=== PATIENT | female | born 1985 | race Caucasian/White ===

== ENCOUNTER 2016-09-13 13:18 | Emergency (ER) | payer OTHER ==
[~2016-09-13] VITALS: Ht 165.1 cm; Wt 84.0 kg
[2016-09-13 13:25] VITALS: Ht 165.1 cm; Wt 84.0 kg
[2016-09-13] MEDS ORDERED: KETOROLAC TROMETHAMINE 30 MG/ML VIAL IV STA (13:54)
[2016-09-13] MEDS ORDERED: ONDANSETRON INJ 2 MG/ML 2 ML VIAL IV STA (13:54)
[2016-09-13] MEDS ORDERED: SODIUM CHLORIDE 0.9% 1000ML 1,000 ML IV ONE (14:00)
[2016-09-13] MEDS ORDERED: ACETAMINOPHEN IV 100 ML IV ONE (14:00)
[2016-09-13] MEDS ORDERED: HYDR200T5 PO (14:09)
[2016-09-13] MEDS ORDERED: IBUP-1050 PO (14:09)
[2016-09-13] MEDS ORDERED: NRN600 PO (14:09)
[2016-09-13] MEDS ORDERED: EPP3/2 IM (14:09)
[2016-09-13] MEDS ORDERED: CYCL10TA6 PO (14:09)
[2016-09-13 15:04] LABS: PREG INTERNAL NEGATIVE QC NEG CLEAR BACKGROUND; PREG INTERNAL POSITIVE QC POS CONTROL LINE
[2016-09-13 15:12] LABS: MANUAL MICROSCOPIC REQUIRED? YES; URINE APPEARANCE CLOUDY (CLEAR); URINE COLOR AMBER; URINE NITRITE POS (NEG); URINE PH 5.5 (4.5-7.5); URINE SPECIFIC GRAVITY >= 1.030 (1.000-1.030); UROBILINOGEN NEG (NEG)
[2016-09-13 15:17] LABS: REVIEW REQ? NO
[2016-09-13 15:18] LABS: URINE BILIRUBIN NEG (NEG)
[2016-09-13 15:25] LABS: URINE BACTERIA 1+ (NEG); ZZUR CULT IF INDIC CLEAN CATCH YES
[2016-09-13 15:33] LABS: ALB/GLOB RATIO 1.2 (0.9-2); ALKALINE PHOSPHATASE 70 U/L (45-117); ALT/SGPT 17 U/L (12-78); AMYLASE 34 U/L (25-115); BLOOD UREA NITROGEN 10 mg/dl (7-18); BUN/CREATININE RATIO 13.9 (10-20); CALCIUM 9.1 mg/dl (8.5-10.1); CARBON DIOXIDE 26 mmol/L (21-32); CHLORIDE 108 mmol/L (98-107); CREATININE 0.75 mg/dl (0.60-1.20); GLUCOSE 81 mg/dl (70-99); SODIUM 141 mmol/L (136-145)
[2016-09-13 16:03] LABS: BASO % 0.2 %; BASO ABS # 0.04 K/uL (0-0.2); COMPLETE YES; EOS % 0.6 %; HEMATOCRIT 44.2 % (37-47); IG% 0.3 %; LYMPH % 6.3 %; LYMPH ABS # 1.08 K/uL (1.2-3.4); MEAN CELL VOLUME 87.9 fL (80-100); MEAN CORPUSCULAR HEMOGLOBIN 30.8 pg (25-34); MEAN CORPUSCULAR HGB CONC 35.1 g/dl (32-36); MEAN PLATELET VOLUME 9.6 fL (7.4-10.4); MONO % 1.6 %; PLATELET COUNT 289 K/uL (130-400); RED BLOOD COUNT 5.03 M/uL (4.2-5.4); WHITE BLOOD COUNT 17.22 K/uL (4.8-10.8)
[2016-09-13 16:05] LABS: BENZODIAZEPINE, URINE NEG (NEG); COCAINE,URINE NEG (NEG); PHENCYCLIDINE, URINE NEG (NEG)
--- NOTE | 2016-09-13 16:55 | DIAGNOSTIC IMAGING REPORT ---
ABDOMEN AND PELVIS CT WITHOUT CONTRAST CT DOSE: 504.01 mGy.cm HISTORY: Pain. Nausea. Generalized abd pain TECHNIQUE: Multiaxial CT images of the abdomen and pelvis were performed without contrast. COMPARISON STUDY: None. FINDINGS: Lung bases are clear. Liver spleen and pancreas appear uniform. Pancreas is suboptimally seen due to the absence of fat in that in the peripancreatic region. Kidneys negative for calcification or hydronephrosis. There is suggestion of mild wall edema of the colon. This may be technical air is a 5 x 4 cm right ovarian cyst. There is a 2 cm left ovarian cyst. There is no significant free fluid within the pelvic cul-de-sac. Bowel pattern is nonobstructive. IMPRESSION: 1. Findings suggestive of a mild nonspecific generalized colitis. 2. No evidence for abscess collection or obstruction. 3. Bilateral ovarian cysts. Electronically signed by: Matias Rendon M.D. 09/13/2016 4:54 PM Dictated Date/Time: 09/13/2016 4:51 PM
[2016-09-13 18:11] LABS: INR 0.9 (0.9-1.1); PARTIAL THROMBOPLASTIN RATIO 0.9
[2016-09-13] MEDS ORDERED: METRONIDAZOLE 250 MG TAB PO STA (18:49)
[2016-09-13] MEDS ORDERED: METR-162 PO (18:53)
[2016-09-13] MEDS ORDERED: HYDR-5688 PO (18:53)
[2016-09-13] MEDS ORDERED: CIPR-255 PO (18:53)
[2016-09-13] MEDS ORDERED: ONDA4TAB10 SL (18:53)
[2016-09-13] MEDS ORDERED: ONDANSETRON HOME PACK 4MG OD TAB PO ONE (19:00)
[2016-09-13] MEDS ORDERED: NORCO 5/325MG HOME PACK PO ONE (19:00)
[2016-09-13] MEDS ORDERED: CIPROFLOXACIN 500MG HOME PACK PO ONE (19:00)
--- NOTE | 2016-09-13 19:52 | EMERGENCY ROOM VISIT NOTE ---
History First contact with patient: 13:39 Chief Complaint: GI ASSESSMENT Stated Complaint: PAIN, LIGHTHEADED, VOMITING HX: PANCREATITIS Nursing Triage Summary: having abdominal pain. "I had to leave work because I got sick and started to vomit." hx of right ovarian cyst and pancreatitis. being "worked up for lupus" History of Present Illness The patient is a 31 year old female who presents to the Emergency Room with complaints of mid abdominal pain worsening over the past one day. The patient states that she feels a bandlike sensation from the left to the right side of her abdomen. She states that she has had similar symptoms intermittently over the past year, and previously has been diagnosed with a right ovarian cyst and pancreatitis. 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 She was at work today when her symptoms began. She has had nausea and vomiting 2. She has not had diarrhea or dysuria. She feels lightheaded after vomiting. The patient denies chance of . She does not have recent travel history or change in food/water supply. She has not been on antibiotics recently. She is being evaluated by her primary care physician for possible lupus. She has not seen GI yet despite having abdominal symptoms for roughly the past year. She rates her current discomfort a 9/10. She has not taken anything [id number] for her discomfort. Review of Systems More than 10 systems were reviewed and otherwise negative with the exception of history of present illness. Past Medical/Surgical History Past history of possible lupus Family History Family history of DVT Social History Smoking Status: Current Every Day Smoker Housing Status: lives with family Occupation Status: employed Current/Historical Medications Scheduled Ciprofloxacin Hcl (Cipro), 500 MG PO BID Cyclobenzaprine Hcl (Flexeril), 1 TAB PO HS Epinephrine (Epipen), 0.3 MG IM UD Gabapentin (Gabapentin), 600 MG PO HS Hydroxychloroquine Sulfate (Plaquenil), 200 MG PO BID Metronidazole (Flagyl), 500 MG PO TID Ondasetron Odt (Zofran Odt), 4 MG SL Q6H Scheduled PRN Hydrocodone/Acetaminophen 5MG/325MG (Lacon 5MG/325MG), 1 TABLET PO Q6 PRN for Pain Ibuprofen (Advil), 200-600 MG PO Q4H PRN for Pain Allergies Coded Allergies: Prednisone (Verified Allergy, Unknown, hives, 09/13/16) Physical Exam Vital Signs Date Time Temp Pulse Resp B/P Pulse Ox O2 Delivery O2 Flow Rate FiO2 09/13/16 17:35 95 18 117/69 98 Room Air 09/13/16 16:32 95 18 121/67 98 Room Air 09/13/16 15:21 79 18 125/79 98 Room Air 09/13/16 13:25 36.8 92 18 134/90 98 Room Air Physical Exam VITALS: Vitals are noted on the nurse's note and reviewed by myself. Vital signs stable. GENERAL: Well-developed, well-nourished, white female who appears in mild discomfort secondary to her stated complaint. HEAD: Normocephalic atraumatic. HEART: Regular rate and rhythm without murmurs gallops or rubs. LUNGS: Clear to auscultation bilaterally without wheezes, rales or rhonchi. No retractions or accessory muscle use. ABDOMEN: Positive normal bowel sounds x 4. Soft with generalized tenderness throughout. No distinct point tenderness. No rebound or guarding. No CVA tenderness. MUSCULOSKELETAL: No muscle atrophy, erythema, or edema noted. Full range of motion without joint tenderness in all extremities. NEURO: Patient was alert and oriented to person place and time. CN II through XII grossly intact. Medical Decision & Procedures ER Provider Diagnostic Interpretation: ABDOMEN AND PELVIS CT WITHOUT CONTRAST CT DOSE: 504.01 mGy.cm HISTORY: Pain. Nausea. Generalized abd pain TECHNIQUE: Multiaxial CT images of the abdomen and pelvis were performed without contrast. COMPARISON STUDY: None. FINDINGS: Lung bases are clear. Liver spleen and pancreas appear uniform. Pancreas is suboptimally seen due to the absence of fat in that in the peripancreatic region. Kidneys negative for calcification or hydronephrosis. There is suggestion of mild wall edema of the colon. This may be technical air is a 5 x 4 cm right ovarian cyst. There is a 2 cm left ovarian cyst. There is no significant free fluid within the pelvic cul-de-sac. Bowel pattern is nonobstructive. IMPRESSION: 1. Findings suggestive of a mild nonspecific generalized colitis. 2. No evidence for abscess collection or obstruction. 3. Bilateral ovarian cysts. Laboratory Results 09/13/16 14:55 Red Blood Count 5.03, Mean Corpuscular Volume 87.9, Mean Corpuscular Hemoglobin 30.8, Mean Corpuscular Hemoglobin Concent 35.1, Mean Platelet Volume 9.6, Neutrophils (%) (Auto) 91.0, Lymphocytes (%) (Auto) 6.3, Monocytes (%) (Auto) 1.6, Eosinophils (%) (Auto) 0.6, Basophils (%) (Auto) 0.2, Neutrophils # (Auto) 15.67, Lymphocytes # (Auto) 1.08, Monocytes # (Auto) 0.28, Eosinophils # (Auto) 0.10, Basophils # (Auto) 0.04 09/13/16 14:55 Test 09/13/16 14:46 09/13/16 14:55 09/13/16 17:46 Urine Color PRASHANT Urine Appearance CLOUDY (CLEAR) Urine pH 5.5 (4.5-7.5) Urine Specific [place] >= 1.030 (1.000-1.030) Urine Protein 2+ (NEG) Urine Glucose (UA) TRACE (NEG) Urine Ketones TRACE (NEG) Urine Occult Blood NEG (NEG) Urine Nitrite POS (NEG) Urine Bilirubin NEG (NEG) Urine Urobilinogen NEG (NEG) Urine Leukocyte Esterase NEG (NEG) Urine RBC 5-10 /hpf (0-4) Urine WBC 1-5 /hpf (0-5) Urine Epithelial Cells >30 /lpf (0-5) Urine Calcium Oxalate Crystals PRESENT (NONE PRSENT) Urine Bacteria 1+ (NEG) Urine Test NEG (NEG) Urine Opiates Screen NEG (NEG) Urine Methadone, Qualitative NEG (NEG) Urine Barbiturates NEG (NEG) Urine Phencyclidine (PCP) Level NEG (NEG) Ur Amphetamine/Methamphetamine NEG (NEG) MDMA (Ecstasy) Screen NEG (NEG) Urine Benzodiazepines Screen NEG (NEG) Urine Cocaine Metabolite NEG (NEG) Urine Marijuana (THC) NEG (NEG) White Blood Count 17.22 K/uL (4.8-10.8) Red Blood Count 5.03 M/uL (4.2-5.4) Hemoglobin 15.5 g/dL (12.0-16.0) Hematocrit 44.2 % (37-47) Mean Corpuscular Volume 87.9 fL (80-100) Mean Corpuscular Hemoglobin 30.8 pg (25-34) Mean Corpuscular Hemoglobin Concent 35.1 g/dl (32-36) Platelet Count 289 K/uL (130-400) Mean Platelet Volume 9.6 fL (7.4-10.4) Neutrophils (%) (Auto) 91.0 % Lymphocytes (%) (Auto) 6.3 % Monocytes (%) (Auto) 1.6 % Eosinophils (%) (Auto) 0.6 % Basophils (%) (Auto) 0.2 % Neutrophils # (Auto) 15.67 K/uL (1.4-6.5) Lymphocytes # (Auto) 1.08 K/uL (1.2-3.4) Monocytes # (Auto) 0.28 K/uL (0.11-0.59) Eosinophils # (Auto) 0.10 K/uL (0-0.5) Basophils # (Auto) 0.04 K/uL (0-0.2) RDW Standard Deviation 39.6 fL (36.4-46.3) RDW Coefficient of Variation 12.4 % (11.5-14.5) Immature Granulocyte % (Auto) 0.3 % Immature Granulocyte # (Auto) 0.05 K/uL (0.00-0.02) Anion Gap 7.0 mmol/L (3-11) Est Creatinine Clear Calc Drug Dose 118.5 ml/min Estimated GFR () 124.8 Estimated GFR (Non- 107.7 BUN/Creatinine Ratio 13.9 (10-20) Calcium Level 9.1 mg/dl (8.5-10.1) Total Bilirubin 1.0 mg/dl (0.2-1) Aspartate Amino Transf (AST/SGOT) U/L (15-37) Alanine Aminotransferase (ALT/SGPT) 17 U/L (12-78) Alkaline Phosphatase 70 U/L (45-117) Total Protein 7.1 gm/dl (6.4-8.2) Albumin 3.8 gm/dl (3.4-5.0) Globulin 3.3 gm/dl (2.5-4.0) Albumin/Globulin Ratio 1.2 (0.9-2) Amylase Level 34 U/L (25-115) Lipase 176 U/L (73-393) Prothrombin Time 10.0 SECONDS (9.0-12.0) Prothromb Time International Ratio 0.9 (0.9-1.1) Activated Partial Thromboplast Time 22.7 SECONDS (21.0-31.0) Partial Thromboplastin Ratio 0.9 Lactic Acid Level 0.9 mmol/L (0.4-2.0) Medications Administered Medications (Trade) Dose Ordered Sig/Mikhail Route Start Time Stop Time Status Last Admin Dose Admin Sodium Chloride (Nss 1000ml) 1,000 ml @ 999 mls/hr Q1H1M ONCE IV 09/13/16 14:00 09/13/16 15:00 DC 09/13/16 15:11 999 MLS/HR Ketorolac Tromethamine (Toradol Inj) 30 mg NOW STAT IV 09/13/16 13:54 09/13/16 13:59 DC 09/13/16 15:12 30 MG Ondansetron HCl 4 mg 4 mg NOW STAT IV 09/13/16 13:54 09/13/16 13:59 DC 09/13/16 15:12 4 MG Acetaminophen (Ofirmev Iv) 100 ml @ 400 mls/hr NOW ONCE IV 09/13/16 14:00 09/13/16 14:14 DC 09/13/16 15:12 400 MLS/HR ED Course Physical exam and history were performed. Nursing notes and EMR were reviewed. Patient appears to have generalized abdominal pain worsening over the past several hours. On exam she is tender throughout the abdomen without distinct point tenderness. She does have a reported history of pancreatitis in the past. IV access was established and labs were obtained. The patient was hydrated and medicated as above. I did offer the patient narcotic medication, but she declined. The patient's blood work shows an elevated white blood cell count of greater than 17,000. She does not have a significant anemia, bandemia, or gross electrolyte imbalance. Lipase and amylase are normal. Her urine is suggestive of infection with culture pending. Because of the elevated white blood cell count and abdominal pain, I did then elect to perform a CT scan. CT scan was read as above and correlates with a mild colitis. Clinically this would correlate with the patient's discomfort. Out of concern for possible ischemic colitis I then ordered a lactic acid, which was also negative. I discussed the case with my attending physician, Dr. García. The patient likely has a colitis and urinary tract infection. She appears stable, and based on her symptoms will be provided a course of Cipro, Flagyl, Vicodin, and Zofran. She overall appears appropriate for discharge home. The patient will need close outpatient follow-up, and I did give her a note for a few days off work. The patient may need outpatient scoping, and I will give her information to follow with gastroenterology. The patient was happy with this plan and voiced understanding. She was invited back to the ER with any new, worsening, or concerning symptoms. The patient rated her discomfort a 2/10 at the time of departure. The chart was completed utilizing [employer] Speech Voice Recognition Software. Grammatical errors, random word insertions, pronoun errors, and incomplete sentences are an occasional consequence of this system due to software limitations, ambient noise, and hardware issues. Any formal questions or concerns about the content, text, or information contained within the body of this dictation should be directly addressed to the provider for clarification. . Medical Decision Differential diagnosis: Etiologies such as appendicitis, diverticulitis, PUD, biliary pathology, UTI, pancreatitis, obstruction, mesenteric ischemia, aortic pathology, infections, inflammatory bowel disease, renal colic, as well as others were entertained. Impression Primary Impression: Colitis Additional Impressions: UTI (urinary tract infection) Abdominal pain Departure Information Dispostion Home / Self-Care Condition GOOD Prescriptions Ondasetron Odt (ZOFRAN ODT) 4 Mg Tab 4 MG SL Q6H for Nausea, #12 TAB Prov: Toni Red PA-C 09/13/16 Hydrocodone/Acetaminophen 5MG/325MG (Lacon 5MG/325MG) Tab 1 TABLET PO Q6 Y for Pain, #12 TAB For Initial Treatment Prov: Toni Red PA-C 09/13/16 Metronidazole (FLAGYL) 500 Mg Tab 500 MG PO TID for 9 Days, #27 TAB Prov: Toni Red PA-C 09/13/16 Ciprofloxacin Hcl (CIPRO) 500 Mg Tab 500 MG PO BID for 9 Days, #18 TAB Prov: Toni Red PA-C 09/13/16 Referrals Kyree Ortiz M.D. Forms HOME CARE DOCUMENTATION FORM, Work Instructions, Additional Instructions: Patient was seen and evaluated today in the emergency department fo medical care. Return to work on 09/17/2016 or sooner if feeling better. Please excuse. IMPORTANT VISIT INFORMATION Patient Instructions My [facility] Additional Instructions You were seen and evaluated today on an emergency basis only. This is not a substitute for, or an effort to provide, complete comprehensive medical care. It is not possible to recognize and treat all injuries or illnesses in a single emergency department visit. For this reason it is recommended that you followup with your primary care physician this week for ongoing care and evaluation. Call Thursday to make your appointment. It is also recommended that you follow with gastroenterology. We have provided the contact information for Dr. Ortiz's office. For baseline pain relief you may alternate ibuprofen and acetaminophen every 4 hours for pain control. Take 600 mg ibuprofen (Advil) and then 4 hours later take 1000 mg acetaminophen (Tylenol). Do not take more than 3000 mg acetaminophen in a single day. Lacon (hydrocodone/acetaminophen) 5/325 mg every 6 hours as needed for worsening breakthrough pain. Do not drink or drive on [place]. This medication will likely make you tired. Do not take Lacon and Tylenol at the same time as both contain acetaminophen. Lacon may cause constipation. You may wish to take an [id number] stool softener like Colace if this occurs. Ciprofloxacin(Cipro) 500mg: Take one pill twice daily for 10 total days for your infection. All antibiotics can cause diarrhea. If this occurs and you feel worse or it does not resolve in 1-2 days follow up with your doctor or return to the Emergency Department as this could be signs of serious underlying problems. If you experience any pain in your tendons or any tendon injury return to the ER for re-evaluation. Any medication can cause an allergic reaction, stop the pills immediately and return to the ER for rash, hives, breathing difficulties, or swelling. Metronidazole(Flagyl) 500mg: Take one pill three times daily for a total days for your infection. DO NOT drink alcohol or take alcohol containing products with this medication. Any medication can cause an allergic reaction, stop the pills immediately and return to the ER for rash, hives, breathing difficulties, or swelling. Zofran 1 tablet every 6 hrs as needed for nausea. Drink plenty of fluids and remain well hydrated. You are welcome to return to the emergency department anytime with new, worsening, or concerning symptoms. Work Instructions Additional Work Instructions: Patient was seen and evaluated today in the emergency department for medical care. Return to work on 09/17/2016 or sooner if feeling better. Please excuse. Problem Qualifiers
[2016-09-13 19:57] VITALS: BP 122/71; PULSE 91; TEMP 36.8; O2SAT 98
== END 2016-09-13 19:57 | disposition home or self-care (01) ==
LOC: C.EDB 13:20
DX: K52.9 Noninfective gastroenteritis and colitis, unspecified (principal); N39.0 Urinary tract infection, site not specified; F17.200 Nicotine dependence, unspecified, uncomplicated

== ENCOUNTER 2016-09-24 15:38 | Emergency (ER) | payer OTHER ==
[~2016-09-24] VITALS: Ht 167.6 cm; Wt 84.0 kg
[~2016-09-24 15:38] MED LIST: CIPR-255 PO; CYCL10TA6 PO; EPP3/2 IM; HYDR-5688 PO; HYDR200T5 PO; IBUP-1050 PO; NRN600 PO; ONDA4TAB10 SL
[2016-09-24 15:49] VITALS: TEMP 36.3; Ht 167.6 cm; Wt 84.0 kg
[2016-09-24] MEDS ORDERED: SODIUM CHLORIDE 0.9% 1000ML 1,000 ML IV SCH (16:33)
--- NOTE | 2016-09-24 16:47 | DIAGNOSTIC IMAGING REPORT ---
ADDENDUM Addendum to CT brain: No evidence for radiopaque or metallic foreign body within the skull or brain based on this exam Electronically signed by: Matias Rendon M.D. 09/24/2016 5:47 PM Dictated Date/Time: 09/24/2016 5:46 PM ORIGINAL REPORT HEAD CT NONCONTRAST CT DOSE: 638.56 mGycm HISTORY: Mental status change. Visual change. Stroke TECHNIQUE: Multiaxial CT images of the head were performed without the use of intravenous contrast. Comparison: None. Findings: The paranasal sinuses and mastoid air cells are clear. The calvarium and skull base are intact. The ventricles and sulci are within normal limits. There is no mass, hematoma, midline shift, or acute infarct. Impression: No acute intracranial abnormality. Electronically signed by: Matias Rendon M.D. 09/24/2016 4:45 PM Dictated Date/Time: 09/24/2016 4:45 PM
[2016-09-24 16:50] VITALS: O2SAT 99
[2016-09-24 17:02] LABS: BASO % 0.5 %; BASO ABS # 0.05 K/uL (0-0.2); COMPLETE YES; EOS % 1.6 %; HEMATOCRIT 42.8 % (37-47); IG% 0.1 %; LYMPH ABS # 3.14 K/uL (1.2-3.4); MEAN CELL VOLUME 87.7 fL (80-100); MEAN CORPUSCULAR HEMOGLOBIN 30.1 pg (25-34); MEAN CORPUSCULAR HGB CONC 34.3 g/dl (32-36); MEAN PLATELET VOLUME 9.2 fL (7.4-10.4); MONO % 6.6 %; NEUT % 60.2 %; PLATELET COUNT 323 K/uL (130-400); RED BLOOD COUNT 4.88 M/uL (4.2-5.4); WHITE BLOOD COUNT 10.12 K/uL (4.8-10.8)
--- NOTE | 2016-09-24 17:04 | DIAGNOSTIC IMAGING REPORT ---
CHEST ONE VIEW PORTABLE CLINICAL HISTORY: Stroke dyspnea COMPARISON STUDY: No previous studies for comparison. FINDINGS: The bones soft tissues and hemidiaphragms are normal. The cardiomediastinal silhouette is normal. The lungs are clear. The pulmonary vasculature is normal. IMPRESSION: Negative chest. Electronically signed by: Matias Rendon M.D. 09/24/2016 5:02 PM Dictated Date/Time: 09/24/2016 5:02 PM
[2016-09-24 17:11] LABS: PARTIAL THROMBOPLASTIN RATIO 1.1; PROTHROMBIN TIME (PATIENT) 10.2 SECONDS (9.0-12.0)
[2016-09-24 17:19] LABS: BLOOD UREA NITROGEN 8 mg/dl (7-18); BUN/CREATININE RATIO 10.7 (10-20); CALCIUM 9.4 mg/dl (8.5-10.1); CARBON DIOXIDE 28 mmol/L (21-32); CHLORIDE 107 mmol/L (98-107); CREATININE 0.76 mg/dl (0.60-1.20); GLUCOSE 96 mg/dl (70-99); SODIUM 140 mmol/L (136-145)
[2016-09-24 17:24] LABS: CKMB/CK RATIO 1.8 (0-3.0)
[2016-09-24 18:58] LABS: BENZODIAZEPINE, URINE NEG (NEG); COCAINE,URINE NEG (NEG); PHENCYCLIDINE, URINE NEG (NEG)
--- NOTE | 2016-09-24 20:13 | DIAGNOSTIC IMAGING REPORT ---
Brain MRA HISTORY: Mental status change headache/ weakness TECHNIQUE: 3-D [id number] MRA of the brain was performed without contrast. COMPARISON STUDY: None. FINDINGS: Visualized intracranial internal carotid arteries, distal vertebral arteries, and basilar artery are widely patent. There is no significant stenosis, occlusion, or aneurysm seen within the bilateral ACAs, MCAs, or drapery operator. IMPRESSION: No significant stenosis, occlusion, or aneurysm within the port lions of [place]. Normal study Electronically signed by: Matias Rendon M.D. 09/24/2016 8:11 PM Dictated Date/Time: 09/24/2016 8:08 PM
[2016-09-24] MEDS ORDERED: ACETAMINOPHEN 500 MG TAB PO STA (21:09)
--- NOTE | 2016-09-24 21:15 | DIAGNOSTIC IMAGING REPORT ---
MRI OF THE BRAIN WITHOUT AND WITH IV CONTRAST CLINICAL HISTORY: headache, weakens mental status change COMPARISON STUDY: No previous studies for comparison. TECHNIQUE: Utilizing a 1.5 Melva magnet and dedicated coil, multiplanar, multiecho imaging of the brain was performed pre and postcontrast administration. IV administration of 8 mL of Gadavist contrast was uneventful. FINDINGS: Normal signal characteristics of the cerebellar as well as cerebral hemispheres. Ventricular system is midline. Internal auditory canals are symmetric. Sella and parasellar regions are unremarkable. There is no abnormal postcontrast enhancement. Diffusion-weighted images show no evidence for an acute ischemic process. IMPRESSION: Normal study. Electronically signed by: Matias Rendon M.D. 09/24/2016 9:13 PM Dictated Date/Time: 09/24/2016 9:09 PM
--- NOTE | 2016-09-24 21:23 | DIAGNOSTIC IMAGING REPORT ---
NECK MRA HISTORY: Mental status change headache, weakness TECHNIQUE: [id number] and gadolinium-enhanced MRA of the neck was performed both before and after the intravenous administration of contrast. All measurements were calculated based on NASCET criteria. COMPARISON STUDY: None. FINDINGS: The aortic arch and proximal great vessels are widely patent. There is no significant stenosis, occlusion, or dissection identified within the bilateral common carotid, internal carotid, or vertebral arteries. IMPRESSION: No significant stenosis, occlusion, or dissection identified within the carotid or vertebral arteries. Electronically signed by: Matias Rendon M.D. 09/24/2016 9:22 PM Dictated Date/Time: 09/24/2016 9:19 PM
--- NOTE | 2016-09-24 21:33 | EMERGENCY ROOM VISIT NOTE ---
ED Visit Note First contact with patient: 16:13 Staff note: I have seen and examined this patient. I have discussed this case with my PA and generally agree with the ED note and findings. Patient was initially seen by my PA. She reports to me that the patient had left-sided weakness, was aphasic and was having a headache. Stroke alert was immediately called. On my exam she is very lethargic and nonfocal in the upper extremities but not moving the lower extremities. There was no focal deficit. She's was not a TPA candidate on my evaluation as this does not appear to be a stroke but rather metabolic vs seizure vs psych. CT head showed no acute bleed. I discussed the findings with stroke neurology at [facility]. She was evaluated by them and recommended additional MRIs. Please refer to my PAs note for further management and care.
--- NOTE | 2016-09-24 22:39 | EMERGENCY ROOM VISIT NOTE ---
History First contact with patient: 16:13 Chief Complaint: HEADACHE Stated Complaint: PAIN LEFT ARM, BLURRED VISION, HEADACHE History of Present Illness The patient is a 31 year old female who presents to the Emergency Room with complaints of headache, blurred vision and left arm tingling. The patient states that for the past few days she has had a right-sided frontal headache with intermittent blurry/double vision. The patient denies any dizziness, chest pain or shortness of breath. The patient states that today she was coming home from visiting a friend and while she was driving she started getting a pounding headache and tingling in her left arm. When she got home her was there and called a friend who is in the medical field and they instructed him to bring her to the emergency room. They live in [place]. The states that the patient was still complaining of the arm numbness and stated that she just didn't feel good. She had an episode of diarrhea and she also stated that she had eaten pancakes when she was out with a friend and vomited. On the way to the emergency room the patient started feeling very weak. Upon arrival to the ER she was able to get out of the car but her stated that she was stumbling and he had to help her into the lobby area. By the time she reached triage her speech was compromise. He states that he can barely hear what she was saying and her words were mumbled. He states this has never happened to her in the past. 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 Her last seizure was over one year ago. She has never been on any seizure medication. He states that when he met her 5 years ago she had told him that she had all 3 types of seizures. He states when he saw her have a seizure over one year ago it only lasted for approximately 1 minute and it was basically that she lost muscle control and fell to the ground and her eyes rolled back. The patient currently is not on any narcotic pain medication. She was given pain medication when she was in the emergency room over a week ago for colitis. He states she ran out of the medication several days ago. He also states that she is currently being worked up by [facility] for possible lupus. She is currently taking Actonel, gabapentin and Flexeril. He states she does smoke cigarettes but very rarely drinks alcohol. The patient's ability to answer questions diminished the longer I was asking her questions. Review of Systems 10 system review was performed and was negative unless stated otherwise history of present illness. Past Medical/Surgical History Head trauma, cholecystectomy, recent colitis, possible lupus Social History Smoking Status: Current Every Day Smoker Alcohol Use: occasionally Marital Status: Housing Status: lives with family Occupation Status: employed Current/Historical Medications Scheduled Ciprofloxacin Hcl (Cipro), 500 MG PO BID Cyclobenzaprine Hcl (Flexeril), 1 TAB PO HS Epinephrine (Epipen), 0.3 MG IM UD Gabapentin (Gabapentin), 600 MG PO HS Hydroxychloroquine Sulfate (Plaquenil), 200 MG PO BID Ondasetron Odt (Zofran Odt), 4 MG SL Q6H Scheduled PRN Hydrocodone/Acetaminophen 5MG/325MG ([place] 5MG/325MG), 1 TABLET PO Q6 PRN for Pain Ibuprofen (Advil), 200-600 MG PO Q4H PRN for Pain Allergies Coded Allergies: Prednisone (Verified Allergy, Unknown, hives, 09/13/16) Physical Exam Vital Signs Date Time Temp Pulse Resp B/P Pulse Ox O2 Delivery O2 Flow Rate FiO2 09/24/16 21:11 80 09/24/16 21:03 86 16 120/82 99 09/24/16 18:34 83 12 132/87 100 Nasal Cannula 2.0 09/24/16 18:03 81 16 135/90 100 Nasal Cannula 2.0 09/24/16 17:31 86 16 140/98 100 Nasal Cannula 2.0 09/24/16 17:11 12 97 Nasal Cannula 2.0 09/24/16 17:11 87 12 134/94 88 Room Air 09/24/16 16:55 85 12 127/82 97 Room Air 09/24/16 16:50 99 Room Air 09/24/16 16:13 83 09/24/16 15:49 36.3 87 16 121/94 100 Physical Exam GENERAL: 31-year-old white female appears very lethargic with her eyes closed. MENTAL Status: The patient initially was alert and was able to answer questions appropriately but then her alertness diminished. EYES: PERRLA. EOMs intact. EARS: Canals clear. TMs without fluid level noted. NECK: Supple, no lymphadenopathy noted. No carotid bruits noted. LUNGS: Clear auscultation without wheezes rales or rhonchi. CARDIAC: Regular rate and rhythm without murmur. Pulses is full and equal throughout. ABDOMEN: Positive bowel sounds all 4 quadrants. Soft, nontender to palpation without organomegaly or masses. NEURO: The patient was not responding well to commands. She was able to puff out her cheek and stick her tongue out but was unable to smile or raise her eyebrows. Muscle strength was diminished throughout. Her video intern strength was less on the left as compared to the right.. Medical Decision & Procedures ER Provider Diagnostic Interpretation: CHEST ONE VIEW PORTABLE CLINICAL HISTORY: Stroke dyspnea COMPARISON STUDY: No previous studies for comparison. FINDINGS: The bones soft tissues and hemidiaphragms are normal. The cardiomediastinal silhouette is normal. The lungs are clear. The pulmonary vasculature is normal. IMPRESSION: Negative chest. Electronically signed by: Matias Rendon M.D. Addendum to CT brain: No evidence for radiopaque or metallic foreign body within the skull or brain based on this exam Electronically signed by: Matias Rendon M.D. 09/24/2016 5:47 PM Dictated Date/Time: 09/24/2016 5:46 PM ORIGINAL REPORT HEAD CT NONCONTRAST CT DOSE: 638.56 mGycm HISTORY: Mental status change. Visual change. Stroke TECHNIQUE: Multiaxial CT images of the head were performed without the use of intravenous contrast. Comparison: None. Findings: The paranasal sinuses and mastoid air cells are clear. The calvarium and skull base are intact. The ventricles and sulci are within normal limits. There is no mass, hematoma, midline shift, or acute infarct. Impression: No acute intracranial abnormality. Electronically signed by: Matias Rendon M.D. 09/24/2016 4:45 PM Dictated Date/Time: 09/24/2016 4:45 PM 09/24/2016 5:02 PM Dictated Date/Time: 09/24/2016 5:02 PM MRI OF THE BRAIN WITHOUT AND WITH IV CONTRAST CLINICAL HISTORY: headache, weakens mental status change COMPARISON STUDY: No previous studies for comparison. TECHNIQUE: Utilizing a 1.5 Melva magnet and dedicated coil, multiplanar, multiecho imaging of the brain was performed pre and postcontrast administration. IV administration of 8 mL of Gadavist contrast was uneventful. FINDINGS: Normal signal characteristics of the cerebellar as well as cerebral hemispheres. Ventricular system is midline. Internal auditory canals are symmetric. Sella and parasellar regions are unremarkable. There is no abnormal postcontrast enhancement. Diffusion-weighted images show no evidence for an acute ischemic process. IMPRESSION: Normal study. Electronically signed by: Matias Rendon M.D. Brain MRA HISTORY: Mental status change headache/ weakness TECHNIQUE: 3-D [id number] MRA of the brain was performed without contrast. COMPARISON STUDY: None. FINDINGS: Visualized intracranial internal carotid arteries, distal vertebral arteries, and basilar artery are widely patent. There is no significant stenosis, occlusion, or aneurysm seen within the bilateral ACAs, MCAs, or finisher hand. IMPRESSION: No significant stenosis, occlusion, or aneurysm within the [place]. Normal study Electronically signed by: Matias Rendon M.D. NECK MRA HISTORY: Mental status change headache, weakness TECHNIQUE: [id number] and gadolinium-enhanced MRA of the neck was performed both before and after the intravenous administration of contrast. All measurements were calculated based on NASCET criteria. COMPARISON STUDY: None. FINDINGS: The aortic arch and proximal great vessels are widely patent. There is no significant stenosis, occlusion, or dissection identified within the bilateral common carotid, internal carotid, or vertebral arteries. IMPRESSION: No significant stenosis, occlusion, or dissection identified within the carotid or vertebral arteries. Electronically signed by: Matias Rendon M.D. 09/24/2016 9:22 PM Laboratory Results 09/24/16 16:47 Red Blood Count 4.88, Mean Corpuscular Volume 87.7, Mean Corpuscular Hemoglobin 30.1, Mean Corpuscular Hemoglobin Concent 34.3, Mean Platelet Volume 9.2, Neutrophils (%) (Auto) 60.2, Lymphocytes (%) (Auto) 31.0, Monocytes (%) (Auto) 6.6, Eosinophils (%) (Auto) 1.6, Basophils (%) (Auto) 0.5, Neutrophils # (Auto) 6.09, Lymphocytes # (Auto) 3.14, Monocytes # (Auto) 0.67, Eosinophils # (Auto) 0.16, Basophils # (Auto) 0.05 09/24/16 16:47 Test 09/24/16 16:47 09/24/16 16:50 09/24/16 16:51 09/24/16 17:50 White Blood Count 10.12 K/uL (4.8-10.8) Red Blood Count 4.88 M/uL (4.2-5.4) Hemoglobin 14.7 g/dL (12.0-16.0) Hematocrit 42.8 % (37-47) Mean Corpuscular Volume 87.7 fL (80-100) Mean Corpuscular Hemoglobin 30.1 pg (25-34) Mean Corpuscular Hemoglobin Concent 34.3 g/dl (32-36) Platelet Count 323 K/uL (130-400) Mean Platelet Volume 9.2 fL (7.4-10.4) Neutrophils (%) (Auto) 60.2 % Lymphocytes (%) (Auto) 31.0 % Monocytes (%) (Auto) 6.6 % Eosinophils (%) (Auto) 1.6 % Basophils (%) (Auto) 0.5 % Neutrophils # (Auto) 6.09 K/uL (1.4-6.5) Lymphocytes # (Auto) 3.14 K/uL (1.2-3.4) Monocytes # (Auto) 0.67 K/uL (0.11-0.59) Eosinophils # (Auto) 0.16 K/uL (0-0.5) Basophils # (Auto) 0.05 K/uL (0-0.2) RDW Standard Deviation 39.4 fL (36.4-46.3) RDW Coefficient of Variation 12.3 % (11.5-14.5) Immature Granulocyte % (Auto) 0.1 % Immature Granulocyte # (Auto) 0.01 K/uL (0.00-0.02) Prothrombin Time 10.2 SECONDS (9.0-12.0) Prothromb Time International Ratio 1.0 (0.9-1.1) Activated Partial Thromboplast Time 27.9 SECONDS (21.0-31.0) Partial Thromboplastin Ratio 1.1 Anion Gap 5.0 mmol/L (3-11) Est Creatinine Clear Calc Drug Dose 119.2 ml/min Estimated GFR () 122.9 Estimated GFR (Non- 106.0 BUN/Creatinine Ratio 10.7 (10-20) Calcium Level 9.4 mg/dl (8.5-10.1) Total Creatine Kinase 38 U/L (26-192) Creatine Kinase MB 0.7 ng/ml (0.5-3.6) Creatine Kinase MB Ratio 1.8 (0-3.0) Troponin I < 0.015 ng/ml (0-0.045) Bedside Glucose 72 mg/dl (70-90) Bedside Prothrombin Time INR 1.0 (0.9-1.1) Urine Opiates Screen NEG (NEG) Urine Methadone, Qualitative NEG (NEG) Urine Barbiturates NEG (NEG) Urine Phencyclidine (PCP) Level NEG (NEG) Ur Amphetamine/Methamphetamine NEG (NEG) MDMA (Ecstasy) Screen NEG (NEG) Urine Benzodiazepines Screen NEG (NEG) Urine Cocaine Metabolite NEG (NEG) Urine Marijuana (THC) NEG (NEG) Medications Administered Medications (Trade) Dose Ordered Sig/Mikhail Route Start Time Stop Time Status Last Admin Dose Admin Sodium Chloride (Nss 1000ml) 1,000 ml @ 50 mls/hr Q20H IV 09/24/16 16:33 10/24/16 16:32 09/24/16 16:59 50 MLS/HR Acetaminophen (Tylenol Tab) 1,000 mg NOW STAT PO 09/24/16 21:09 09/24/16 21:10 DC 09/24/16 21:30 1,000 MG ECG Indication: weakness Rhythm: normal sinus Findings: no acute ischemic change ED Course The patient was evaluated. I immediately discussed the case with Dr. García who independently evaluated the patient. A stroke alert was called. Stroke protocol was initiated. The patient was quickly taken to CT for imaging. Imaging was negative. Consult with [facility] for assessment was obtained. Please see their note. The neurologist did not feel that TPA was indicated . He recommended that an MRI of the brain as well as MRA of the head and neck were obtained as soon as possible. These were ordered. MRI clearance was obtained. Chest x-ray was ordered and interpreted by the radiologist as above without any acute findings. Labs were reviewed and were all unremarkable. CBC and differential, renal profile, troponin were all negative. EKG was ordered and interpreted without any acute findings. Urine tox screen was ordered and was negative. MRI of the brain, MRA of the head and neck was interpreted by the radiologist as above without any acute findings. I advised that the patient get admitted for further evaluation and observation over at least the next 24 hours. The patient refused to be admitted and therefore she signed out AGAINST MEDICAL ADVICE Medical Decision Differential diagnosis include MS, brain lesion, stroke, aneurysm, vascular thrombosis in the head or neck, psychiatric, I do not have any clear cut answers for the patient's symptoms therefore admission was recommended. The patient refused to be admitted therefore left AGAINST MEDICAL ADVICE Impression Primary Impression: Headache Additional Impressions: Weakness Altered mental status Left against medical advice Departure Information Dispostion Home / Self-Care Condition FAIR Referrals No Doctor, Assigned (PCP) Forms HOME CARE DOCUMENTATION FORM, IMPORTANT VISIT INFORMATION Patient Instructions My [facility] Additional Instructions We recommended that he be admitted to the hospital. Use left AGAINST MEDICAL ADVICE. Please follow-up with your PCP as soon as possible. Problem Qualifiers
[2016-09-24 22:50] VITALS: BP 122/80; PULSE 82; O2SAT 98
== END 2016-09-24 22:55 | disposition left against medical advice (07) ==
LOC: C.EDB 15:39
DX: R51 Headache (principal); R53.1 Weakness; R41.82 Altered mental status, unspecified; Z87.820 Personal history of traumatic brain injury; K52.9 Noninfective gastroenteritis and colitis, unspecified; R56.9 Unspecified convulsions; F17.210 Nicotine dependence, cigarettes, uncomplicated; Z79.899 Other long term (current) drug therapy

== ENCOUNTER 2019-11-19 22:21 | Inpatient (IN) ==
[2019-11-19] MEDS ORDERED: ACETAMINOPHEN 1,000 MG/100 ML VIAL IV STA (23:40)
[2019-11-19] MEDS ORDERED: SODIUM CHLORIDE 0.9% 1000ML 1,000 ML IV ONE (23:40)
[2019-11-19] MEDS ORDERED: ONDANSETRON INJ 2 MG/ML 2 ML VIAL IV STA (23:40)
[2019-11-19] MEDS ORDERED: ALBUT/IPRATROP 3MG/0.5MG NEB 3 ML VIAL NEB STA (23:47)
--- NOTE | 2019-11-19 23:47 | Emergency Department Note ---
History of Present Illness General Chief complaint: Illness Stated complaint: COUGH, FEVER, SOB Time Seen by Provider: 11/19/19 23:17 Source: patient Mode of arrival: ambulatory Limitations: no limitations History of Present Illness Provider complaint: worsening symptoms Onset (ago): day(s) 4 Location: chest and abdomen Radiation: non-radiation Severity: moderate Pain Consistency: + constant Maximum Pain Intensity: 8 Current Pain Intensity: 8 Quality: + constant Relieved By: + none Exacerbated By: + movement Associated symptoms: + cough, + loss of appetite and + shortness of breath Treatments prior to arrival: NSAID and other (MDI) This is a 34-year-old female who presents from home with known coronavirus. Patient was diagnosed on November 15 after having a positive sick contact at work. Patient works in a mental health facility. Patient states she has felt worse with each passing day, is using her inhaler at home more frequently. She did speak to her machinist set up that she has a history of lupus and was told to stop her immunosuppressant agent, however she still does take Plaquenil. Patient has not been using prednisone or other steroids. Patient states she is more short of breath and had worsening chest pain with exertion. Patient denies any lower extremity swelling. No change in bowel or bladder function. No new rash or sores. Patient does notice poor smell and taste. Pt seen during a time of high acuity and national emergency pandemic while wearing PPE. Home Medications Home Medications Medication Instructions Recorded Confirmed Type albuterol sulfate [Proventil HFA] 2 puff INHALATION QID PRN 07/19/19 11/19/19 History duloxetine 30 mg PO HS 07/19/19 11/19/19 History duloxetine 60 mg PO HS 07/19/19 11/19/19 History gabapentin 1,200 mg PO HS 07/19/19 11/19/19 History nifedipine 30 mg PO HS 07/19/19 11/19/19 History fluticasone fur. 100 mcg-umeclid 1 puffs INH DAILY 90 Days #60 ea 08/12/19 11/19/19 Rx 62.5 mcg-vilant 25 mcg inhalat.powder hydroxychloroquine [Plaquenil] 200 mg PO DIRECTED 11/19/19 11/19/19 History zinc sulfate [Orazinc] 220 mg PO BID #20 cap 05/24/20 Rx Allergies Allergy/AdvReac Type Severity Reaction Status Date / Time bee venom protein (honey bee) Allergy Severe Anaphylaxis Verified 11/19/19 23:35 prednisone Allergy Intermediate hives Verified 11/19/19 23:35 Past Med/Surg History Medical History (Updated 11/21/19 @ 07:35 by Eulalia Wiggins DO) Asthma (Chronic) Bronchitis (Inactive) Fibromyalgia (Chronic) Pneumonia SLE (systemic lupus erythematosus related syndrome) (Acute) Tobacco abuse (Chronic) Surgical History H/O total hysterectomy Family History Other No significant family history Social History Preferred Language: Latvian Communication Ability: Effective Refrigeration Service Inspector Required: No Beliefs That Will Affect Care: None marital status: Current Living Situation: Spouse Feels Safe at Home: Yes Smoking Status: Current every day smoker Tobacco Type: cigarettes ; Age Started Using Tobacco: 15 ; Cigarettes Per Day: 4 ; Hx Alcohol Use: Yes Alcohol type: hard liquor Hx Substance Use: No Review of Systems See HPI for pertinent positives & negatives. and A total of 10 systems reviewed and were otherwise negative Physical Exam Vital Signs Vital Signs - 24 hr 11/19/19 22:28 11/19/19 23:34 11/20/19 00:01 Temperature 36.7 C Temperature Source Oral Pulse Rate 91 H Pulse Rate [Right Radial] 77 Pulse Rate from SpO2 Sensor 81 Pulse Rhythm Regular Pulse Strength Normal Respiratory Rate 20 16 Respiratory Effort / Characteristics Non-Labored Spontaneous Non-Labored Spontaneous Respiratory Depth Normal Respiratory Pattern Regular Blood Pressure 144/99 H 127/85 Blood Pressure Mean 114 103 Blood Pressure Position Lying Pulse Oximetry 98 95 98 Oxygen Delivery Method Room Air Room Air Sepsis Recent Fever Within 48 Hours Yes Sepsis New/Unexplained Change in Mental Status No Sepsis Action Taken by Nursing No Action Required 11/20/19 00:10 11/20/19 00:20 11/20/19 00:24 Temperature Temperature Source Pulse Rate Pulse Rate [Right Radial] Pulse Rate from SpO2 Sensor 82 87 87 Pulse Rhythm Pulse Strength Respiratory Rate Respiratory Effort / Characteristics Respiratory Depth Respiratory Pattern Blood Pressure 132/82 Blood Pressure Mean 90 Blood Pressure Position Pulse Oximetry 92 95 95 Oxygen Delivery Method Sepsis Recent Fever Within 48 Hours Sepsis New/Unexplained Change in Mental Status Sepsis Action Taken by Nursing 11/20/19 00:30 11/20/19 01:00 Temperature Temperature Source Pulse Rate 80 82 Pulse Rate [Right Radial] Pulse Rate from SpO2 Sensor 77 82 Pulse Rhythm Pulse Strength Respiratory Rate 16 16 Respiratory Effort / Characteristics Respiratory Depth Respiratory Pattern Blood Pressure 118/78 134/90 Blood Pressure Mean 96 98 Blood Pressure Position Pulse Oximetry 96 95 Oxygen Delivery Method Sepsis Recent Fever Within 48 Hours Sepsis New/Unexplained Change in Mental Status Sepsis Action Taken by Nursing GENERAL: alert, ill appearing, well nourished, no distress, non-toxic EYE EXAM: normal conjunctiva, PERRL and EOM's grossly intact OROPHARYNX: no exudate, no erythema, lips, buccal mucosa, and tongue normal and mucous membranes are moist NECK: supple, no nuchal rigidity, no adenopathy, non-tender LUNGS: Clear to auscultation. Normal chest wall mechanics, no w/r/r, slightly coarse at the bases posteriorly HEART: no murmurs, S1 normal and S2 normal ABDOMEN: abdomen soft, non-tender, normo-active bowel sounds, no masses, no rebound or guarding. BACK: Back is symmetrical on inspection and there is no deformity, no midline tenderness, no CVA tenderness. SKIN: no rashes and no bruising UPPER EXTREMITIES: upper extremities are grossly normal. FROM, nml pulses b/l. LOWER EXTREMITIES: No pitting edema. FROM, nml pulses b/l. NEURO EXAM: Normal sensorium, cranial nerves II-XII grossly intact, normal speech, no gross weakness of arms, no gross weakness of legs. Gross sensation intact. Course Course 0202: Patient updated on results. Patient states she continues to feel markedly ill. Chest pain is slightly improved with addition of IV Tylenol. 0220: Case discussed with Dr. Ochoa, hospitalist for additional evaluation. Administered Medications Discontinued Medications Acetaminophen (Tylenol) 650 mg PO Q4H PRN PRN Reason: Pain or Fever Stop: 12/20/19 05:35 Last Admin: 11/20/19 08:52 Dose: 650 mg Documented by: [id number] Albuterol (Duoneb) 3 ml NEB NOW STA Stop: 11/19/19 23:48 Last Admin: 11/19/19 23:59 Dose: 3 ml Documented by: [id number] Fluticasone Furoate (Arnuity Ellipta 100mcg) 1 puffs INH DAILY ROBERT Stop: 12/20/19 08:59 Last Admin: 11/20/19 07:59 Dose: 1 puffs Documented by: [id number] Hydroxychloroquine Sulfate (Plaquenil) 400 mg PO BID ROBERT Stop: 11/25/19 08:59 Last Admin: 11/20/19 08:50 Dose: 400 mg Documented by: [id number] Sodium Chloride (Nss 1000ml) 1,000 mls @ 999 mls/hr IV .Q1H1M ONE Stop: 11/20/19 00:40 Last Infusion: 11/20/19 01:28 Dose: 0 mls/hr Documented by: [id number] Admin: 11/20/19 00:25 Dose: 999 mls/hr Documented by: [id number] Acetaminophen (Ofirmev) 1,000 mg in 100 mls @ 400 mls/hr IV NOW STA Stop: 11/19/19 23:54 Last Infusion: 11/20/19 00:46 Dose: 0 mls/hr Documented by: [id number] Admin: 11/20/19 00:25 Dose: 400 mls/hr Documented by: [id number] Potassium Chloride/Sodium Chloride (Normal Saline W/20 Meq Kcl) 20 meq in 1,000 mls @ 100 mls/hr IV .Q10H ROBERT Stop: 12/20/19 05:59 Last Admin: 11/20/19 07:58 Dose: 100 mls/hr Documented by: [id number] Ondansetron HCl (Zofran) 4 mg IV NOW STA Stop: 11/19/19 23:41 Last Admin: 11/20/19 00:25 Dose: 4 mg Documented by: [id number] Umeclidinium/Vilanterol (Anoro Ellipta 62.5/25 Mcg Inh) 1 puffs INH DAILY ROBERT Stop: 12/20/19 08:59 Last Admin: 11/20/19 08:00 Dose: 1 puffs Documented by: [id number] Zinc Sulfate (Zinc Sulfate) 220 mg PO BID ROBERT Stop: 11/25/19 08:59 Last Admin: 11/20/19 08:50 Dose: 220 mg Documented by: [id number] Medical Decision Making Differential Diagnosis Differential diagnoses includes but is not limited to pneumonia, bronchitis, COPD/Asthma exacerbation, pneumothorax, pulmonary embolism, congestive heart failure, acute coronary syndrome Medical Records Attestation: I reviewed the patient's medical records. Home Medications Current Medication List: was personally reviewed by me Laboratory Data Attestation: I reviewed the patient's lab results. Result diagrams: 11/20/19 07:56 11/20/19 07:56 Lab Results 11/19/19 11/19/19 Range/Units 00:30 00:30 WBC 5.85 (4.8-10.8) K/uL RBC 5.02 (4.2-5.4) M/uL Hgb 15.3 (12.0-16.0) g/dL Hct 44.5 (37-47) % MCV 88.6 (80-100) fL MCH 30.5 (25-34) pg MCHC 34.4 (32-36) g/dL RDW Std Deviation 40.1 (36.4-46.3) fL RDW Coeff of Geovanny 12.5 (11.5-14.5) % Plt Count 261 (130-400) K/uL MPV 9.7 (7.4-10.4) fL Immature Gran % (Auto) 0.2 % Neut % (Auto) 38.4 % Lymph % (Auto) 47.0 % [place] % (Auto) 12.3 % Eos % (Auto) 1.9 % Baso % (Auto) 0.2 % Immature Gran # (Auto) 0.01 (0.00-0.02) K/uL Neut # (Auto) 2.25 (1.4-6.5) K/uL Lymph # (Auto) 2.75 (1.2-3.4) K/uL [place] # (Auto) 0.72 H (0.11-0.59) K/uL Eos # (Auto) 0.11 (0-0.5) K/uL Baso # (Auto) 0.01 (0-0.2) K/uL Sodium 142 (136-145) mmol/L Potassium 3.4 L (3.5-5.1) mmol/L Chloride 110 H (98-107) mmol/L Carbon Dioxide 23 (21-32) mmol/L Anion Gap 9.0 (3-11) BUN 12 (7-18) mg/dl Creatinine 0.87 (0.6-1.2) mg/dl Est Cr Clr Drug Dosing 117.2 ml/min Est GFR ( Amer) 102.2 Est GFR (Non-Af Amer) 88.1 BUN/Creatinine Ratio 14.3 (10-20) Glucose 101 H (70-99) mg/dl Calcium 9.1 (8.5-10.1) mg/dl Magnesium 1.8 (1.8-2.4) mg/dl Total Bilirubin 0.3 (0.2-1) mg/dl AST 20 (15-37) U/L ALT 30 (12-78) U/L Alkaline Phosphatase 98 (45-117) U/L Troponin I < 0.015 (0-0.045) ng/ml Total Protein 7.0 (6.4-8.2) gm/dl Albumin 3.5 (3.4-5.0) gm/dl Globulin 3.5 (2.5-4.0) gm/dl Albumin/Globulin Ratio 1.0 (0.9-2) Lipase 235 (73-393) U/L Specimen Hemolysis Imaging Data My Impression: X-ray: I interpreted the following studies. Chest: A single view study of the chest was reviewed and was negative for cardiomegaly, focal infiltrate, effusion, pulmonary edema, or wide mediastinum. ECG Data Attestation: I personally reviewed and interpreted this ECG as follows: Indication: + chest pain and + SOB/dyspnea Rate (beats per minute): 83 Rhythm: + normal sinus ECG Intervals/blocks: + Normal QRS and + Normal QT ECG [place]: + Normal ECG ST segments: + Nonspecific ST abnormalities Change: no significant change Blood Pressure Blood Pressure Findings: Normal blood pressure MDM Narrative An order was placed for continuous cardiac monitoring. The monitor shows a rate of 86 with normal sinus_ rhythm. Patient here ill-appearing presenting with known coronavirus. Patient with wor sening symptoms despite OTC treatments at home over the last 4 days. Patient most concerned giving increased shortness of breath and chest pain. Patient has been using her inhaler more than usual. Patient also concerned due to being immunocompromised from her lupus and current treatment. Patient was not hypoxic, chest x-ray reassuring. Labs drawn and sent as a precaution and were otherwise reassuring as well. Patient given additional IV Tylenol, and additional neb treatment here. Patient stated while her pain was slightly improved she still felt like it was more difficult to breathe. Patient with no lower extremity edema or calf tenderness, I do not suspect PE. No evidence of pneumonia, pleural effusion. No ectopy or dysrhythmia noted on telemetry. I do not suspect ACS, tamponade, dissection. Case discussed with hospitalist for additional monitoring given patient is high risk from being immunocompromise. Patient made aware of all results and was in agreement with plan. Impression & Plan COVID-19 virus infection, SLE (systemic lupus erythematosus related syndrome), Acute dyspnea, Chest pain Discharge Plan Visit Data *Final* Discharge Date/Time: 11/20/19 05:04 Chief Complaint: Illness Stated Complaint: COUGH, FEVER, SOB ED Provider: Eulalia Wiggins Discharge Problem: COVID-19 virus infection, SLE (systemic lupus erythematosus related syndrome), Acute dyspnea, Chest pain Patient Disposition: Admitted As Inpatient Discharge Instructions Interventions: ED Discharge Assessment Last Done: 11/20/19 05:04 Discharge Problem: Chest pain Qualifiers: Chest pain type: unspecified Qualified Code(s): R07.9 - Chest pain, unspecified
[2019-11-20 00:45] LABS: Basophils # (auto) 0.01 K/uL (0-0.2); Basophils % (auto) 0.2 %; Eosinophils # (auto) 0.11 K/uL (0-0.5); Eosinophils % (auto) 1.9 %; Hematocrit (blood only) 44.5 % (37-47); Hemoglobin 15.3 g/dL (12.0-16.0); Immature Granulocytes # (auto) 0.01 K/uL (0.00-0.02); Immature Granulocytes % (auto) 0.2 %; Lymphocytes # (auto) 2.75 K/uL (1.2-3.4); Mean Corpuscular Hemoglobin 30.5 pg (25-34); Mean Corpuscular Hgb Conc 34.4 g/dL (32-36); Mean Corpuscular Volume 88.6 fL (80-100); Mean Platelet Volume 9.7 fL (7.4-10.4); Monocytes # (auto) 0.72 K/uL (0.11-0.59); Monocytes % (auto) 12.3 %; Neutrophils # (auto) 2.25 K/uL (1.4-6.5); Neutrophils % (auto) 38.4 %; Platelet Count 261 K/uL (130-400); RDW Coefficient of Variation 12.5 % (11.5-14.5); RDW Standard Deviation 40.1 fL (36.4-46.3); Red Blood Count 5.02 M/uL (4.2-5.4); White Blood Count 5.85 K/uL (4.8-10.8)
[2019-11-20 01:14] LABS: Alanine Aminotransferase 30 U/L (12-78); Albumin Level 3.5 gm/dl (3.4-5.0); Alkaline Phosphatase 98 U/L (45-117); Aspartate Aminotransferase 20 U/L (15-37); BUN Creatinine Ratio 14.3 (10-20); Bilirubin,Total 0.3 mg/dl (0.2-1); Blood Urea Nitrogen 12 mg/dl (7-18); Calcium 9.1 mg/dl (8.5-10.1); Carbon Dioxide 23 mmol/L (21-32); Chloride 110 mmol/L (98-107); Creatinine Clr Calc Pharmacy 117.2 ml/min; Est GFR (African American) 102.2; Est GFR (Non-African American) 88.1; Globulin 3.5 gm/dl (2.5-4.0); Glucose 101 mg/dl (70-99); Lipase 235 U/L (73-393); Magnesium 1.8 mg/dl (1.8-2.4); Potassium 3.4 mmol/L (3.5-5.1); Sodium 142 mmol/L (136-145); Troponin I < 0.015 ng/ml (0-0.045)
--- NOTE | 2019-11-20 05:28 | History & Physical Report ---
Date of Service November 20, 2019 Assessment & Plan (1) COVID-19 virus infection: COVID-19 virus infection/asthma- Presently takes hydroxychloroquine 200 mg p.o. daily for SLE. Increase hydroxychloroquine to 400 mg p.o. twice daily x5 days. Add zinc sulfate 220 mg p.o. twice daily. Patient presently is 98% on room air, with no significant change on chest x-ray, but does report feeling more short of breath and had been using her inhaler every hour at home. She reports that prednisone causes hives, but is unaware if she has been on methylprednisolone in the past. Since she appears relatively stable at this time. Will hold on methylprednisolone, and contact her crusher setter in the morning to see if she has tolerated methylprednisolone in the past. Continue Trelegy. Consult her audio tape librarian Dr. Ashby. Patient is immunocompromised, on the basis of her underlying SLE, and also takes a weekly injection of an immunosuppressive medication. Present on Admission?: Yes (2) Asthma: See above Present on Admission?: Yes (3) Fibromyalgia: Continue duloxetine, gabapentin, hydroxychloroquine and nifedipine. Present on Admission?: Yes (4) SLE (systemic lupus erythematosus related syndrome): See above. Present on Admission?: Yes (5) Tobacco abuse: Cessation counseling. Present on Admission?: Yes History of Present Illness Chief Complaint: The patient presents to the emergency department with complaint of fever, cough and shortness of breath, with progressive need of her albuterol HFA inhaler over the past 4 days. Primary Care Provider: Elli Mittal The patient is a 34-year-old female with a past medical history including asthma, fibromyalgia, SLE, tobacco abuse, anxiety, depression and hypertension. She presents to the emergency department with worsening cough, fever and shortness of breath over the past 4 days. 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 Work-up in the emergency department included COVID-19 testing, which was positive. She did speak with her crusher setter Dr. Mejia 5 days ago, who advised her that they would discontinue injection treatment for SLE which she receives once weekly, with last dose 5 days ago. She follows with pulmonology Dr. Ashby at [facility]. Allergies Allergy/AdvReac Type Severity Reaction Status Date / Time bee venom protein (honey bee) Allergy Severe Anaphylaxis Verified 11/19/19 23:35 prednisone Allergy Intermediate hives Verified 11/19/19 23:35 Home Medications Home Medications Medication Instructions Recorded Confirmed Type albuterol sulfate [Proventil HFA] 2 puff INHALATION QID PRN 07/19/19 11/19/19 History duloxetine 30 mg PO HS 07/19/19 11/19/19 History duloxetine 60 mg PO HS 07/19/19 11/19/19 History gabapentin 1,200 mg PO HS 07/19/19 11/19/19 History nifedipine 30 mg PO HS 07/19/19 11/19/19 History fluticasone fur. 100 mcg-umeclid 1 puffs INH DAILY 90 Days #60 ea 08/12/19 11/19/19 Rx 62.5 mcg-vilant 25 mcg inhalat.powder hydroxychloroquine [Plaquenil] 200 mg PO DIRECTED 11/19/19 11/19/19 History Past Med/Surg History Medical History Asthma (Chronic) Bronchitis (Inactive) Fibromyalgia (Chronic) Hx of systemic lupus erythematosus (SLE) (Chronic) Pneumonia Tobacco abuse (Chronic) Surgical History H/O total hysterectomy Family History Other No significant family history Social History Preferred Language: Azeri Feels Safe at Home: Yes Smoking Status: Current every day smoker Tobacco Type: cigarettes ; Age Started Using Tobacco: 15 ; Cigarettes Per Day: 5 ; Review of Systems Review of Systems: The patient denies chest pain, palpitations, lower extremity swelling, sore throat, nausea, vomiting, diarrhea , constipation, abdominal pain, pelvic pain, blood in urine or stool, dysuria, urinary frequency or urgency, lightheadedness, dizziness, headache, memory loss, loss of consciousness, rash, abnormal bruising or bleeding, imbalance, focal weakness, numbness or tingling in arms or legs, back or neck pain, or night sweats. The review of systems is otherwise negative other than for that already noted above, and at least 10 systems have been reviewed. Physical Exam Physical Exam: The patient is awake, alert and oriented 3, well developed and well nourished, normocephalic and atraumatic, lying in bed and in no acute distress. HEENT--PERRL, EOMI, mucous membranes and oropharynx normal. Neck--supple. No JVD. No bruits. Thyroid normal, trachea midline, no adenopathy. Heart--normal S1 and S2. No murmurs, rubs or gallops. Lungs--few coarse breath sounds bilaterally with scattered wheezes, right greater than left. No respiratory distress, no accessory muscle use. Abdomen--normal bowel sounds and soft. Nontender. Nondistended, no hernias or masses, no organomegaly. Extremities--no cyanosis or clubbing. No edema. Dermatologic--normal skin turgor, normal color, no abnormal lymph nodes, no tony h. Neurologic--cranial nerves II through XII grossly intact. Rheumatologic--normal range of motion. Psychiatric--normal affect. Results & Data Results & Data ([facility]) Vital Signs (Past 12 Hours) Vital Signs Temp Pulse Pulse Resp BP Pulse Ox 11/20/19 02:30 76 18 112/89 98 11/20/19 02:00 81 16 129/82 96 11/20/19 01:30 80 20 149/90 H 95 11/20/19 01:00 82 16 134/90 95 11/20/19 00:30 80 16 118/78 96 11/20/19 00:24 132/82 95 11/20/19 00:20 95 11/20/19 00:10 92 11/20/19 00:01 77 16 98 11/19/19 23:34 127/85 95 11/19/19 22:28 98.1 F 91 H 20 144/99 H 98 Laboratory Results Laboratory Results WBC 5.85 K/uL (4.8-10.8) 11/19/19 00:30 RBC 5.02 M/uL (4.2-5.4) 11/19/19 00:30 Hgb 15.3 g/dL (12.0-16.0) 11/19/19 00:30 Hct 44.5 % (37-47) 11/19/19 00:30 MCV 88.6 fL (80-100) 11/19/19 00:30 MCH 30.5 pg (25-34) 11/19/19: MCHC 34.4 g/dL (32-36) 11/19/19 00: RDW Std Deviation 40.1 fL (36.4-46.3) 11/19/19 00 RDW Coeff of Geovanny 12.5 % (11.5-14.5) 11/19/19 00: Plt Count 261 K/uL (130-400) 11/19/19 00: MPV 9.7 fL (7.4-10.4) 11/19/19 00: Immature Gran % (Auto) 0.2 % 11/19/19 00: Neut % (Auto) 38.4 % 11/19/19 00: Lymph % (Auto) 47.0 % 11/19/19 00: [place] % (Auto) 12.3 % 11/19/19 00:30 Eos % (Auto) 1.9 % 11/19/19 00: Baso % (Auto) 0.2 % 11/19/19 00:30 Immature Gran # (Auto) 0.01 K/uL (0.00-0.02) 11/19/19 00:30 Neut # (Auto) 2.25 K/uL (1.4-6.5) 11/19/19 00:30 Lymph # (Auto) 2.75 K/uL (1.2-3.4) 11/19/19 00:30 [place] # (Auto) 0.72 K/uL (0.11-0.59) H 11/19/19 00:30 Eos # (Auto) 0.11 K/uL (0-0.5) 11/19/19 00:30 Baso # (Auto) 0.01 K/uL (0-0.2) 11/19/19 00:30 Sodium 142 mmol/L (136-145) 11/19/19 00:30 Potassium 3.4 mmol/L (3.5-5.1) L 11/19/19 00:30 Chloride 110 mmol/L (98-107) H 11/19/19 00:30 Carbon Dioxide 23 mmol/L (21-32) 11/19/19 00:30 Anion Gap 9.0 (3-11) 11/19/19 00:30 BUN 12 mg/dl (7-18) 11/19/19:30 Creatinine 0.87 mg/dl (0.6-1.2) 11/19/19 00:30 Est Cr Clr Drug Dosing 117.2 ml/min 11/19/19 00:30 Est GFR ( Amer) 102.2 11/19/19 00:30 Est GFR (Non-Af Amer) 88.1 11/19/19 00:30 BUN/Creatinine Ratio 14.3 (10-20) 11/19/19 00:30 Glucose 101 mg/dl (70-99) H 11/19/19 00:30 Calcium 9.1 mg/dl (8.5-10.1) 11/19/19:30 Magnesium 1.8 mg/dl (1.8-2.4) 11/19/19:30 Total Bilirubin 0.3 mg/dl (0.2-1) 11/19/19: AST 20 U/L (15-37) 11/19/19: ALT 30 U/L (12-78) 11/19/19 00:30 Alkaline Phosphatase 98 U/L (45-117) 11/19/19 00:30 Troponin I < 0.015 ng/ml (0-0.045) 11/19/19 00:30 Total Protein 7.0 gm/dl (6.4-8.2) 11/19/19 00:30 Albumin 3.5 gm/dl (3.4-5.0) 11/19/19: Globulin 3.5 gm/dl (2.5-4.0) 11/19/19 00:30 Albumin/Globulin Ratio 1.0 (0.9-2) 11/19/19 00: Lipase 235 U/L (73-393) 11/19/19: Specimen Hemolysis 11/19/19 00:30 Code Status & VTE Plan Code Status Full code VTE Prophylaxis Plan VTE Prophylaxis will be ordered: Yes PG Care Time/CCT Total # of Minutes Spent Total Time Spent with Patient: Total time spent is greater than 50% in coordination of care (as documented) at patient's floor/unit and/or counseling patient: Coding Level of Care Code 42589 Initial Inpt Care Lvl 3 Diagnoses COVID-19 virus infection U07.1 Asthma J45.909 Fibromyalgia M79.7 SLE (systemic lupus erythematosus related syndrome) M32.9 Tobacco abuse Z72.0
[2019-11-20] MEDS ORDERED: ALBUTEROL HFA 8 GM INHALER INH PRN (05:36)
[2019-11-20] MEDS ORDERED: ONDANSETRON INJ 2 MG/ML 2 ML VIAL IV PRN (05:36)
[2019-11-20] MEDS ORDERED: ALUMINUM/MAGNESIUM SUSP 30 ML UDC PO PRN (05:36)
[2019-11-20] MEDS ORDERED: ACETAMINOPHEN 325 MG TAB PO PRN (05:36)
[2019-11-20] MEDS ORDERED: MAGNESIUM HYDROXIDE SUSP 30 ML UDC PO PRN (05:36)
[2019-11-20] MEDS ORDERED: NSS + 20MEQ KCL 20 MEQ/1,000 ML BAG IV SCH (06:00)
--- NOTE | 2019-11-20 07:25 | Hospitalist Progress Note ---
Date of Service November 20, 2019 Assessment & Plan (1) COVID-19 virus infection: COVID-19 virus infection/asthma- Presently takes hydroxychloroquine 200 mg p.o. daily for SLE. Increase hydroxychloroquine to 400 mg p.o. twice daily for the first two doses and then 200 mg bid Added zinc sulfate 220 mg p.o. twice daily. Patient presently is 98% on room air, with no significant change on chest x-ray, but does report feeling more short of breath and had been using her inhaler every hour at home. She reports that prednisone causes hives, but is unaware if she has been on methylprednisolone in the past. Since she appears relatively stable at this time. Continue Trelegy. Consult her regulation supervisor Dr. Ashby. Patient is immunocompromised, on the basis of her underlying SLE, and also takes a weekly injection of an immunosuppressive medication. (2) Asthma: typically takes abluterol trelegy plus fluticasone, if airways become more reactive will push issue with steroid tolerance (3) Fibromyalgia: Continue duloxetine, gabapentin, hydroxychloroquine and nifedipine. (4) SLE (systemic lupus erythematosus related syndrome): (5) Tobacco abuse: Cessation counseling. Admission and Anticipated Discharge Date Admission Date: November 20, 2019 Results & Data Results & Data ([facility]) Vital Signs (Past 12 Hours) Vital Signs Temp Pulse Pulse Resp BP BP Pulse Ox 11/20/19 05:36 97.9 F 77 16 134/84 98 11/20/19 02:30 76 18 112/89 98 11/20/19 02:00 81 16 129/82 96 11/20/19 01:30 80 20 149/90 H 95 11/20/19 01:00 82 16 134/90 95 11/20/19 00:30 80 16 118/78 96 11/20/19 00:24 132/82 95 11/20/19 00:20 95 11/20/19 00:10 92 11/20/19 00:01 77 16 98 11/19/19 23:34 127/85 95 11/19/19 22:28 98.1 F 91 H 20 144/99 H 98 PG Care Time/CCT Total # of Minutes Spent Total Time Spent with Patient: Total time spent is greater than 50% in coordination of care (as documented) at patient's floor/unit and/or counseling patient: Coding Diagnoses COVID-19 virus infection U07.1 Asthma J45.909 Fibromyalgia M79.7 SLE (systemic lupus erythematosus related syndrome) M32.9 Tobacco abuse Z72.0
[2019-11-20 08:14] LABS: Basophils # (auto) 0.03 K/uL (0-0.2); Basophils % (auto) 0.7 %; Eosinophils # (auto) 0.06 K/uL (0-0.5); Eosinophils % (auto) 1.4 %; Hematocrit (blood only) 44.7 % (37-47); Immature Granulocytes # (auto) 0.01 K/uL (0.00-0.02); Immature Granulocytes % (auto) 0.2 %; Lymphocytes # (auto) 1.78 K/uL (1.2-3.4); Lymphocytes % (auto) 41.5 %; Mean Corpuscular Hemoglobin 30.4 pg (25-34); Mean Corpuscular Hgb Conc 33.6 g/dL (32-36); Mean Corpuscular Volume 90.5 fL (80-100); Mean Platelet Volume 9.5 fL (7.4-10.4); Monocytes # (auto) 0.73 K/uL (0.11-0.59); Neutrophils # (auto) 1.68 K/uL (1.4-6.5); Neutrophils % (auto) 39.2 %; Platelet Count 253 K/uL (130-400); RDW Coefficient of Variation 12.6 % (11.5-14.5); RDW Standard Deviation 41.8 fL (36.4-46.3); Red Blood Count 4.94 M/uL (4.2-5.4); White Blood Count 4.29 K/uL (4.8-10.8)
[2019-11-20 08:35] LABS: D Dimer < 190 ug/L FEU (0-500)
[2019-11-20 08:42] LABS: BUN Creatinine Ratio 13.9 (10-20); Blood Urea Nitrogen 11 mg/dl (7-18); C Reactive Protein < 0.29 mg/dl (0-0.29); Calcium 8.8 mg/dl (8.5-10.1); Carbon Dioxide 23 mmol/L (21-32); Chloride 110 mmol/L (98-107); Creatinine Clr Calc Pharmacy 128.7 ml/min; Est GFR (African American) 113.1; Est GFR (Non-African American) 97.6; Glucose 94 mg/dl (70-99); Potassium 3.9 mmol/L (3.5-5.1); Sodium 140 mmol/L (136-145)
[2019-11-20] MEDS ORDERED: ZINC SULFATE 220 MG CAPSULE PO SCH (09:00)
[2019-11-20] MEDS ORDERED: HYDROXYCHLOROQUINE SULFATE 200 MG TAB PO SCH (09:00)
[2019-11-20] MEDS ORDERED: UMECLIDINIUM/VILANTEROL 62.5/25MCG 7 PUFFS/INHALER INH SCH (09:00)
[2019-11-20] MEDS ORDERED: FLUTICASONE FUROATE 100MCG 14 PUFFS/INHALER INH SCH (09:00)
--- NOTE | 2019-11-20 09:14 | XRay Report ---
XR chest 1V portable CLINICAL HISTORY: Shortness of breath. COMPARISON STUDY: Chest CT July 19, 2019. Chest radiograph July 20, 2019. FINDINGS: Lung volumes are normal. Minimal left basilar opacity favors atelectasis. There is no pneum othorax or pleural effusion. Cardiac size is normal. Mediastinal contours are normal. There is no sarai dence for pulmonary edema. Mild elevation of the right hemidiaphragm is unchanged. IMPRESSION: No acute cardiopulmonary findings. Minimal left basilar opacity which favors atelectasis . ACT 112: Negative or not required by law. Electronically signed by: Patrick Baum M.D. 11/20/2019 9:13 AM
--- NOTE | 2019-11-20 10:00 | Electrocardiogram Report ---
Test Reason : Blood Pressure : / mmHG Vent. Rate : 082 BPM Atrial Rate : 082 BPM P-R Int : 186 ms QRS Dur : 070 ms QT Int : 382 ms P-R-T Axes : 034 008 013 degrees QTc Int : 446 ms Normal sinus rhythm Possible Septal infarct (cited on or before 24-SEP-2016) Abnormal ECG When compared with ECG of 20-JUL-2019 20:15, No significant change was found Confirmed by Silvestre Jordan ([id number]) on 11/20/2019 10:00:08 AM Referred By: REFERRED SELF Confirmed By:Silvestre Jordan
--- NOTE | 2019-11-20 13:23 | Discharge Summary ---
Date of Service November 20, 2019 Admission HPI Per Admitting Provider The patient is a 34-year-old female with a past medical history including asthma, fibromyalgia, SLE, tobacco abuse, anxiety, depression and hypertension. She presents to the emergency department with worsening cough, fever and shortness of breath over the past 4 days. 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 Work-up in the emergency department included COVID-19 testing, which was positive. She did speak with her public address systems mechanic Dr. Mejia 5 days ago, who advised her that they would discontinue injection treatment for SLE which she receives once weekly, with last dose 5 days ago. She follows with pulmonology Dr. Ashby at [facility]. Principal Diagnosis COVID INFECTION Discharge Exam The patient appeared well Vital signs as documented. Patient not hypoxic does not appear toxic Lungs are clear to auscultation and appear unlabored Cardiac exam, Rhythm is regular.. No murmurs, rubs or gallops. Abdominal exam reveals normal bowel sounds, soft non tender, no masses she is having no diarrhea Extremities are nonedematous and both pedal pulses are normal. Neurologic exam is alert and oriented, no focal loss of strength or sensation Skin is without bruises or rashes she has multiple tattoos Psychologically is without concerns for anxiety or depression Discharge Data Allergies Allergy/AdvReac Type Severity Reaction Status Date / Time bee venom protein (honey bee) Allergy Severe Anaphylaxis Verified 11/19/19 23:35 prednisone Allergy Intermediate hives Verified 11/19/19 23:35 Consultations 11/20/19 03:33 ED Decision to Admit Stat 11/20/19 05:36 Consult Case Management - Discharge Planning Routine Consult Pulmonology Routine Hospital Course (1) COVID-19 virus infection: COVID-19 virus infection/asthma-asthma has not been an issue while she has been in the hospital. Presently takes hydroxychloroquine 200 mg p.o. daily for SLE. Increase hydroxychloroquine to 400 mg p.o. twice daily for the first two doses and then 200 mg bid for 4 more days Added zinc sulfate 220 mg p.o. twice daily. Recommend considering taking vitamin D up to 10,000 international units a day Patient's oxygen saturation has not been an issue. We checked inflammatory markers of d-dimer and CRP both are normal suggesting there is a significant amount of inflammation at this time. I educated the patient that she may continue to feel about the same but she does feel she is progressed to get gotten worse she is to return immediately to emergency department for readmission. Continue Trelegy. (2) Asthma: typically takes abluterol trelegy plus fluticasone, (3) Fibromyalgia: Continue duloxetine, gabapentin, hydroxychloroquine and nifedipine. (4) SLE (systemic lupus erythematosus related syndrome): See above. (5) Tobacco abuse: Cessation counseling. Patient seem acceptable for this Total Time Total Time Spent Total Time Spent (In Minutes): It required greater than 30 minutes to prepare this patient for discharge Discharge Plan Discharge Items Patient Disposition: Home - Self-Care Reason For Visit: COVID-19 INDUCED RESPIRATORY DISTRESS,IMMUNOSUPPRE Discharge Diagnosis: covid 19 infection Activity: Per Instructions section Activity Comment: home isolate for 10 days or 3 days after your symptoms resolve Non-emergency contact: Primary Care Provider Call non-emergency contact if: you have any medication questions and your symptoms worsen Follow-up/Referrals: Elli Mittal C.R.N.P. [Primary Care Provider] - Diet: Regular Addtl Attending Provider Instructions: Please take your plaquenil 200mg twice a day for 8 doses then return to once a day consider taking zinc and vitamin D, some articles suggest taking 10,000 IU of vitamin a day for a few weeks to be sure your vitamin D levels are appropriate Home Isolation COVID-19 Instructions The following information about Home Isolation is from the CDC Website: https://www.cdc.gov/coronavirus/2019-ncov/hcp/ydjqazay-trxnzvd-dyntbv.html Stay home except to get medical care People who are mildly ill with COVID-19 are able to isolate at home during their illness. You should restrict activities outside your home, except for getting medical care. Do not go to work, school, or public areas. Avoid using public transportation, ride-sharing, or taxis. Separate yourself from other people and animals in your home People: As much as possible, you should stay in a specific room and away from other people in your home. Also, you should use a separate bathroom, if available. Animals: You should restrict contact with pets and other animals while you are sick with COVID-19, just like you would around other people. Although there have not been reports of pets or other animals becoming sick with COVID-19, it is still recommended that people sick with COVID-19 limit contact with animals until more information is known about the virus. When possible, have another member of your household care for your animals while you are sick. If you are sick with COVID-19, avoid contact with your pet, including petting, snuggling, being kissed or licked, and sharing food. If you must care for your pet or be around animals while you are sick, wash your hands before and after you interact with pets and wear a face mask. Call ahead before visiting your doctor If you have a medical appointment, call the healthcare provider and tell them that you have or may have COVID-19. This will help the healthcare providers office take steps to keep other people from getting infected or exposed. Wear a face mask You should wear a face mask when you are around other people (e.g., sharing a room or vehicle) or pets and before you enter a healthcare providers office. If you are not able to wear a face mask (for example, because it causes trouble breathing), then people who live with you should not stay in the same room with you, or they should wear a face mask if they enter your room. Cover your coughs and sneezes Cover your mouth and nose with a tissue when you cough or sneeze. Throw used tissues in a lined trash can. Immediately wash your hands with soap and water for at least 20 seconds or, if soap and water are not available, clean your hands with an alcohol-based hand pediatric oncology nurse that contains at least 60% alcohol. Clean your hands often Wash your hands often with soap and water for at least 20 seconds, especially after blowing your nose, coughing, or sneezing; going to the bathroom; and before eating or preparing food. If soap and water are not readily available, use an alcohol-based hand pediatric oncology nurse with at least 60% alcohol, covering all surfaces of your hands and rubbing them together until they feel dry. Soap and water are the best option if hands are visibly dirty. Avoid touching your eyes, nose, and mouth with unwashed hands. Avoid sharing personal household items You should not share dishes, drinking glasses, cups, eating utensils, towels, or bedding with other people or pets in your home. After using these items, they should be washed thoroughly with soap and water. Clean all high-touch surfaces everyday High touch surfaces include counters, tabletops, doorknobs, bathroom fixtures, toilets, phones, keyboards, tablets, and bedside tables. Also, clean any surfaces that may have blood, stool, or body fluids on them. Use a household cleaning spray or wipe, according to the label instructions. Labels contain instructions for safe and effective use of the cleaning product including precautions you should take when applying the product, such as wearing gloves and making sure you have good ventilation during use of the product. Monitor your symptoms Seek prompt medical attention if your illness is worsening (e.g., difficulty breathing).Beforeseeking care, call your healthcare provider and tell them that you have, or are being evaluated for, COVID-19. Put on a face mask before you enter the facility. These steps will help the healthcare providers office to keep other people in the office or waiting room from getting infected or exposed. Ask your healthcare provider to call the local or state health department. Persons who are placed under active monitoring or facilitated self- monitoring should follow instructions provided by their local health department or occupational health professionals, as appropriate. When working with your local health department check their available hours. If you have a medical emergency and need to call 911, notify the dispatch personnel that you have, or are being evaluated for COVID-19. If possible, put on a face mask before emergency medical services arrive. Discontinuing home isolation Patients with confirmed COVID-19 should remain under home isolation precautions until the risk of secondary transmission to others is thought to be low. The decision to discontinue home isolation precautions should be made on a [id number] basis, in consultation with healthcare providers and state and local health departments. Pending Studies at Discharge: No Stand-Alone Forms: My [employer], Smoking Cessation Medications and DC Order Prescriptions: New zinc sulfate [Orazinc] 220 (50) mg Capsule 220 mg PO BID Qty: 20 RF: 0 Continued Trelegy Ellipta 100-62.5-25 mcg blister with device 1 puffs INH DAILY 90 Days Qty: 60 RF: 3 hydroxychloroquine [Plaquenil] 200 mg Tablet 200 mg PO DIRECTED RF: 0 nifedipine 30 mg tablet extended release 24hr 30 mg PO HS RF: 0 gabapentin 300 mg capsule 1,200 mg PO HS RF: 0 albuterol sulfate [Proventil HFA] 90 mcg/actuation HFA aerosol inhaler 2 puff INHALATION QID PRN (Reason: Shortness Of Breath) RF: 0 duloxetine 30 mg capsule,delayed release(DR/EC) 30 mg PO HS RF: 0 duloxetine 60 mg capsule,delayed release(DR/EC) 60 mg PO HS RF: 0 Discharge Orders: Discharge Order (Routine); Ordered 11/20/19 Ordered By: Delmer Manjarrez Admission Data Admit Date/Time: 11/20/19 03:37 Attending Provider: Delmer Manjarrez Admit Provider: Jermaine Ochoa Primary Care Provider: Elli Mittal Other Providers: Jermaine Ochoa ; Adam Ashby Coding Level of Care Code D/C Day Management >30 mins Diagnoses COVID-19 virus infection U07.1 Asthma J45.909 Fibromyalgia M79.7 SLE (systemic lupus erythematosus related syndrome) M32.9 Tobacco abuse Z72.0
[2019-11-20] MEDS ORDERED: GABAPENTIN 400 MG CAP PO SCH (21:00)
[2019-11-20] MEDS ORDERED: DULOXETINE HCL 60 MG CAP PO SCH (21:00)
[2019-11-20] MEDS ORDERED: DULOXETINE HCL 30 MG CAP PO SCH (21:00)
== END 2019-11-20 14:55 | disposition home or self-care (01) | DRG 179 ==
LOC: ED 22:21 → SUATTDRO 11-20 03:37 → 2E 11-20 03:37
DX: U07.1 COVID-19; M79.7 Fibromyalgia; M32.9 Systemic lupus erythematosus, unspecified; J45.909 Unspecified asthma, uncomplicated; F17.200 Nicotine dependence, unspecified, uncomplicated

== ENCOUNTER 2020-10-13 | Observation (INO) ==
[2020-10-13] MEDS ORDERED: FAMOTIDINE 20MG IV PUSH 20 MG/5 ML SYR IV STA (00:21)
[2020-10-13] MEDS ORDERED: MoRPHine SULFATE 4 MG/ML 1 ML CARP\\VIAL IV STA (00:21)
[2020-10-13] MEDS ORDERED: diphenhydrAMINE 50 MG/ML VIAL IV STA (00:21)
[2020-10-13] MEDS ORDERED: ONDANSETRON INJ 2 MG/ML 2 ML VIAL IV STA (00:21)
[2020-10-13] MEDS ORDERED: SODIUM CHLORIDE 0.9% 1000ML 1,000 ML IV SCH ×2 (00:30→01:45)
[2020-10-13] MEDS ORDERED: KETOROLAC 30 MG/ML VIAL IV STA (00:32)
[2020-10-13 01:27] LABS: Basophils # (auto) 0.06 K/uL (0-0.2); Basophils % (auto) 0.4 %; Eosinophils # (auto) 0.23 K/uL (0-0.5); Eosinophils % (auto) 1.6 %; Hematocrit (blood only) 48.2 % (37-47); Immature Granulocytes # (auto) 0.02 K/uL (0.00-0.02); Immature Granulocytes % (auto) 0.1 %; Lymphocytes # (auto) 3.65 K/uL (1.2-3.4); Lymphocytes % (auto) 25.2 %; Mean Corpuscular Hemoglobin 30.6 pg (25-34); Mean Corpuscular Hgb Conc 35.3 g/dL (32-36); Mean Corpuscular Volume 86.8 fL (80-100); Monocytes # (auto) 1.62 K/uL (0.11-0.59); Monocytes % (auto) 11.2 %; Neutrophils # (auto) 8.93 K/uL (1.4-6.5); Neutrophils % (auto) 61.5 %; Platelet Count 437 K/uL (130-400); Red Blood Count 5.55 M/uL (4.2-5.4); White Blood Count 14.51 K/uL (4.8-10.8)
[2020-10-13 01:32] LABS: Albumin Level 4.2 gm/dl (3.4-5.0); BUN Creatinine Ratio 15.8 (10-20); Calcium 10.5 mg/dl (8.5-10.1); Creatinine Clr Calc Pharmacy 128.2 ml/min; Est GFR (Non-African American) 98.4; Potassium 3.8 mmol/L (3.5-5.1)
[2020-10-13 01:35] LABS: Bilirubin,Total 0.4 mg/dl (0.2-1); C Reactive Protein 0.58 mg/dl (0-0.29); Globulin 4.1 gm/dl (2.5-4.0); Total Protein 8.3 gm/dl (6.4-8.2)
[2020-10-13] MEDS ORDERED: GI COCKTAIL ED USE PO ONE ×2 (02:00→02:02)
--- NOTE | 2020-10-13 05:49 | History & Physical Report ---
Date of Service October 13, 2020 Assessment & Plan (1) Drug rash: Drug rash/reaction to Lamictal- Patient is concerned about a reaction to prednisone in which her "heart stops". Suspect she may be more likely having PVCs at the time. After considerable hours in the ED and only slight improvement on Benadryl IV, famotidine IV and Toradol IV, she is agreeable to trying low-dose Solu-Medrol, because if she tolerates it, then it can be used to treat help treat her lupus flares at a later date. Trial of methylprednisolone 10 mg IV x1, and if tolerates, would increase dosing further. continue Benadryl 25 mg IV every 4 hours as needed Famotidine 20 mg IV every 12 hours Could consider the addition of Voltaren gel topically Present on Admission?: Yes (2) Seizure-like activity: We will consult Dr. Hirsch, her neurologist Present on Admission?: Yes (3) Migraine: Has used sumatriptan and rizatriptan as an outpatient Present on Admission?: Yes (4) SLE (systemic lupus erythematosus related syndrome): SLE/fibromyalgia- Follows with Dr. Armas Continue duloxetine, gabapentin, hydroxychloroquine. Hold naproxen and stop lamotrigine Present on Admission?: Yes (5) Fibromyalgia: See above Present on Admission?: Yes History of Present Illness Chief Complaint: The patient presents to the emergency department with complaint of painful rash that is developed since she started taking Lamictal 4 days ago. Primary Care Provider: Elli Mittal The patient is a 35-year-old female with a past medical history including migraine, vitamin B12 deficiency, seizure-like activity, memory impairment, COVID-19 virus infection October 2019, SLE, asthma, fibromyalgia and tobacco abuse. She was started on a early dose of Lamictal 25 mg daily, 4 days ago, by Dr. Hirsch with plans to gradually increase upwards. She reports that over the past few days she had worsening rash that is painful, burning and feels like a sunburn. She has no recent travels or sick exposures. Allergies Allergy/AdvReac Type Severity Reaction Status Date / Time bee venom protein (honey bee) Allergy Severe Anaphylaxis Verified 10/13/20 02:10 prednisone Allergy Severe MAKES MY Verified 10/13/20 02:10 HEART STOP Home Medications Medication Instructions Recorded Confirmed Type duloxetine 30 mg PO HS 07/19/19 10/13/20 History duloxetine 60 mg PO HS 07/19/19 10/13/20 History nifedipine 30 mg PO HS 07/19/19 10/13/20 History hydroxychloroquine [Plaquenil] 200 mg PO BID 11/19/19 10/13/20 History fluticasone fur. 100 mcg-umeclid 1 puffs INH DAILY 90 Days #60 ea 11/25/19 10/13/20 Rx 62.5 mcg-vilant 25 mcg inhalat.powder acetaminophen [Tylenol Extra 1,500 mg PO Q6H PRN 12/21/19 10/13/20 History Strength] gabapentin 600 mg PO HS 12/21/19 10/13/20 History naproxen sodium [Aleve] 220 mg PO Q6H PRN 12/21/19 10/13/20 History albuterol sulfate 2 puff INHALATION QID PRN 01/09/20 10/13/20 History gabapentin 300 mg PO .AM & AFTERNOON 01/09/20 10/13/20 History belimumab 200 mg/mL subcutaneous 200 mg SUBCUT Q7D ml 08/07/20 10/13/20 History auto-injector lamotrigine 25 mg tablet 25 mg PO .COMPLEX #60 tab 10/10/20 10/13/20 Rx rizatriptan 10 mg disintegrating 10 mg PO Q2H PRN #12 tab 10/10/20 10/13/20 Rx tablet cyanocobalamin (vitamin B-12) 1,000 mcg SUBCUT .COMPLEX #4 ml 10/12/20 10/13/20 Rx 1,000 mcg/mL injection solution syringe with needle 1 mL 27 x 1/2" #4 ea 10/12/20 10/12/20 Rx sumatriptan succinate 100 mg PO UD PRN 10/13/20 10/13/20 History Past Med/Surg History Medical History Anxiety Asthma Closed right ankle fracture Fibromyalgia GERD (gastroesophageal reflux disease) History of kidney stones Low back pain Peripheral neuropathy Restless leg syndrome SLE (systemic lupus erythematosus related syndrome) Surgical History H/O laparoscopy H/O total hysterectomy History of anesthesia reaction History of section History of cholecystectomy History of colonoscopy History of esophagogastroduodenoscopy (EGD) History of tooth extraction Family History Other No significant family history Social History Smoking Status: Current every day smoker Tobacco Type: Cigarettes Age Started Using Tobacco: 15; Years Smoked: 21; Cigarettes Per Day: 20 CIG DAILY; Second Hand Exposure: No; Hx Alcohol Use: No Hx Substance Use: No Preferred Language: Czech Communication Ability: Effective Winterizer Required: No Beliefs That Will Affect Care: None marital status: Current Living Situation: Spouse Feels Safe at Home: Yes Assistive Devices: Crutches, Denture - Upper and Denture - Lower Review of Systems Review of Systems: The patient denies chest pain, palpitations, shortness of breath, dyspnea on exertion, cough, lower extremity swelling, sore throat, fevers, chills, sweats, nausea, vomiting, diarrhea , constipation, abdominal pain, pelvic pain, blood in urine or stool, dysuria, urinary frequency or urgency, lightheadedness, dizziness, headache, loss of consciousness, abnormal bruising or bleeding, imbalance, focal or generalized weakness, numbness or tingling in arms or legs, generalized arthralgias or myalgias, back or neck pain, or night sweats. The review of systems is otherwise negative other than for that already noted above, and at least 10 systems have been reviewed. Physical Exam Physical Exam: The patient is awake, alert and oriented 3, well developed and well nourished, normocephalic and atraumatic, lying in bed and in no acute distress. HEENT--PERRL, EOMI, mucous membranes and oropharynx dry. Neck--supple. No JVD. No bruits. Thyroid normal, trachea midline, no adenopathy. Heart--normal S1 and S2. No murmurs, rubs or gallops. Lungs--clear bilaterally, no respiratory distress, no accessory muscle use. Abdomen--normal bowel sounds and soft. Nontender. Nondistended, no hernias or masses, no organomegaly. Extremities--no cyanosis or clubbing. No edema. There are good distal pulses b/l. Dermatologic--sunburn type rash over back and shoulders, and extending over to chest and somewhat of her abdomen. Neurologic--cranial nerves II through XII grossly intact. Rheumatologic--normal range of motion. Psychiatric--normal affect. Results & Data Results & Data ([facility]) Vital Signs (Past 12 Hours) Vital Signs Temp Pulse Pulse Resp BP BP Pulse Ox 10/13/20 04:41 84 16 119/75 100 10/13/20 00:35 93 H 16 134/99 99 10/13/20 00:04 98.2 F 97 H 16 138/99 100 Laboratory Results Laboratory Results WBC 14.51 K/uL (4.8-10.8) H 10/13/20 00:52 RBC 5.55 M/uL (4.2-5.4) H 10/13/20 00:52 Hgb 17.0 g/dL (12.0-16.0) H 10/13/20 00:52 Hct 48.2 % (37-47) H 10/13/20 00:52 MCV 86.8 fL (80-100) 10/13/20 00:52 MCH 30.6 pg (25-34) 10/13/20 00:52 MCHC 35.3 g/dL (32-36) 10/13/20 00:52 Plt Count 437 K/uL (130-400) H 10/13/20 00:52 Immature Gran % (Auto) 0.1 % 10/13/20 00:52 Neut % (Auto) 61.5 % 10/13/20 00:52 Lymph % (Auto) 25.2 % 10/13/20 00:52 Taylor % (Auto) 11.2 % 10/13/20 00:52 Eos % (Auto) 1.6 % 10/13/20 00:52 Baso % (Auto) 0.4 % 10/13/20 00:52 Neut # (Auto) 8.93 K/uL (1.4-6.5) H 10/13/20 00:52 Lymph # (Auto) 3.65 K/uL (1.2-3.4) H 10/13/20 00:52 Taylor # (Auto) 1.62 K/uL (0.11-0.59) H 10/13/20 00:52 Eos # (Auto) 0.23 K/uL (0-0.5) 10/13/20 00:52 Baso # (Auto) 0.06 K/uL (0-0.2) 10/13/20 00:52 Immature Gran # (Auto) 0.02 K/uL (0.00-0.02) 10/13/20 00:52 ESR 17 mm/hr (0-21) 10/13/20 00:52 Sodium 139 mmol/L (136-145) 10/13/20 00:52 Potassium 3.8 mmol/L (3.5-5.1) 10/13/20 00:52 Chloride 107 mmol/L (98-107) 10/13/20 00:52 Carbon Dioxide 29 mmol/L (21-32) 10/13/20 00:52 Anion Gap 3.0 (3-11) 10/13/20 00:52 BUN 13 mg/dl (7-18) 10/13/20 00:52 Creatinine 0.79 mg/dl (0.6-1.2) 10/13/20 00:52 Est Cr Clr Drug Dosing 128.2 ml/min 10/13/20 00:52 Est GFR ( Amer) 114.0 10/13/20 00:52 Est GFR (Non-Af Amer) 98.4 10/13/20 00:52 BUN/Creatinine Ratio 15.8 (10-20) 10/13/20 00:52 Glucose 85 mg/dl (70-99) 10/13/20 00:52 Lactate 0.9 mmol/L (0.4-2.0) 10/13/20 00:03 Calcium 10.5 mg/dl (8.5-10.1) H 10/13/20 00:52 Total Bilirubin 0.4 mg/dl (0.2-1) 10/13/20 00:52 AST 9 U/L (15-37) L 10/13/20 00:52 ALT 20 U/L (12-78) 10/13/20 00:52 Alkaline Phosphatase 106 U/L (45-117) 10/13/20 00:52 C-Reactive Protein 0.58 mg/dl (0-0.29) H 10/13/20 00:52 Total Protein 8.3 gm/dl (6.4-8.2) H 10/13/20 00:52 Albumin 4.2 gm/dl (3.4-5.0) 10/13/20 00:52 Globulin 4.1 gm/dl (2.5-4.0) H 10/13/20 00:52 Albumin/Globulin Ratio 1.0 (0.9-2) 10/13/20 00:52 COVID-19 Eval Order CovFluRsv at [facility] 10/13/20 05:08 SARS-CoV-2 (PCR) NEGATIVE (Negative) 10/13/20 05:08 Influenza Type A (PCR) Negative (Neg) 10/13/20 05:08 Influenza Type B (PCR) Negative (Neg) 10/13/20 05:08 RSV (RT-PCR) Negative (Neg) 10/13/20 05:08 Code Status & VTE Plan Code Status Full code VTE Prophylaxis Plan VTE Prophylaxis will be ordered: Yes PG Care Time/CCT Total # of Minutes Spent Total Time Spent with Patient: Total time spent is greater than 50% in coordination of care (as documented) at patient's floor/unit and/or counseling patient: Coding Level of Care Code 10432 OBS Care - Level 3 Diagnoses Drug rash L27.0 Seizure-like activity R56.9 Migraine G43.909 SLE (systemic lupus erythematosus related syndrome) M32.9 Fibromyalgia M79.7
[2020-10-13 06:06] LABS: Influenza A virus by PCR Negative (Neg); Influenza B virus by PCR Negative (Neg); RSV by PCR Negative (Neg); SARS CoV2 RNA(COVID-19) InHosp NEGATIVE (Negative)
[2020-10-13] MEDS ORDERED: ONDANSETRON INJ 2 MG/ML 2 ML VIAL IV PRN (07:49)
[2020-10-13] MEDS ORDERED: traMADol HCL 50 MG TABLET PO PRN (07:49)
[2020-10-13] MEDS ORDERED: diphenhydrAMINE 50 MG/ML VIAL IV PRN (07:49)
[2020-10-13] MEDS ORDERED: ACETAMINOPHEN 325 MG TAB PO PRN (07:49)
[2020-10-13] MEDS ORDERED: RIZATRIPTAN BENZOATE 10 MG TAB PO PRN (08:04)
[2020-10-13] MEDS ORDERED: methylPREDNISolone 10 MG in SYRINGE 0 ML IV ONE (08:15)
[2020-10-13] MEDS: GABAPENTIN 300 MG CAP PO SCH ×2 (08:20→14:20)
[2020-10-13] MEDS: NSS + 20MEQ KCL 20 MEQ/1,000 ML BAG IV SCH ×2 (08:22→15:10)
[2020-10-13] MEDS ORDERED: FLUTICASONE FUROATE 100MCG 14 PUFFS/INHALER INH SCH (09:00)
[2020-10-13] MEDS ORDERED: FAMOTIDINE 20 MG in SYRINGE 3 ML IV SCH (09:00)
[2020-10-13] MEDS ORDERED: HYDROXYCHLOROQUINE SULFATE 200 MG TAB PO SCH (09:00)
[2020-10-13] MEDS ORDERED: UMECLIDINIUM/VILANTEROL 62.5/25MCG 7 PUFFS/INHALER INH SCH (09:00)
--- NOTE | 2020-10-13 11:51 | Neurology Consultation ---
Date of Consultation October 13, 2020 Assessment & Plan (1) Drug rash: Josi Hernandez is a 35 yo woman w/ PMH of fibromyalgia, PTSD, migraines, chronic brain fog/memory issues, h/o COVID, lupus on plaquenil, tobacco abuse, Raynaud's phenomenon, asthma, and h/o nephrolithiasis who p/t [facility] with rash after starting lamictal two days prior. # Possible drug rash: 2/2 starting lamictal, also has h/o lupus with intermittent rashes as per rheumatology notes which complicates the picture - hold lamictal, add to allergies list - for migraines, she can start magnesium 400mg daily, riboflavin 400mg daily and consider starting depakote ER 500mg qhs (she would like to start it while admitted given recent side effects to the lamictal) - should have closer follow up in neurology within 4-6 weeks to check in given rash and medication changes (telehealth option ok) Thank you for this interesting consult. Plan of care discussed with primary team. Please call or text with questions. 40 minutes was spent [id number] with patient, with more than 50% spent on counseling/coordination of care/charting. (2) Migraine: History of Present Illness Attending Physician: Jermaine Ochoa MD History of Present Illness Josi Hernandez is a 35 yo woman w/ PMH of fibromyalgia, PTSD, migraines, chronic brain fog/memory issues, h/o COVID, lupus on plaquenil, tobacco abuse, Raynaud's phenomenon, asthma, and h/o nephrolithiasis who p/t [facility] with rash after starting lamictal two days prior. On examination, she reports that she started the lamictal Thursday evening and started to notice a rash on Thursday evening/ morning. Showed a picture of a red, pruritic rash across her back. She initially thought it was due to her h/o lupus but since it got worse with associated itching and blistering, called the outpatient office and directed to come to the ED. She has stopped the lamictal and has been on steroids since admission. Would prefer to start the new migraine medication while here given the side effect to the lamictal. Denies any other new neurological symptoms including new N/T/W, worsening headaches or new vision changes. On reviewing Dr Hirsch's note, alternative migraine medication was supposed to be depakote if any issues with lamictal. Allergies Allergy/AdvReac Type Severity Reaction Status Date / Time bee venom protein (honey bee) Allergy Severe Anaphylaxis Verified 10/13/20 02:10 prednisone Allergy Severe MAKES MY Verified 10/13/20 02:10 HEART STOP Home Medications Medication Instructions Recorded Confirmed Type duloxetine 30 mg PO HS 07/19/19 10/13/20 History duloxetine 60 mg PO HS 07/19/19 10/13/20 History nifedipine 30 mg PO HS 07/19/19 10/13/20 History hydroxychloroquine [Plaquenil] 200 mg PO BID 11/19/19 10/13/20 History fluticasone fur. 100 mcg-umeclid 1 puffs INH DAILY 90 Days #60 ea 11/25/19 10/13/20 Rx 62.5 mcg-vilant 25 mcg inhalat.powder acetaminophen [Tylenol Extra 1,500 mg PO Q6H PRN 12/21/19 10/13/20 History Strength] gabapentin 600 mg PO HS 12/21/19 10/13/20 History naproxen sodium [Aleve] 220 mg PO Q6H PRN 12/21/19 10/13/20 History albuterol sulfate 2 puff INHALATION QID PRN 01/09/20 10/13/20 History gabapentin 300 mg PO .AM & AFTERNOON 01/09/20 10/13/20 History belimumab 200 mg/mL subcutaneous 200 mg SUBCUT Q7D ml 08/07/20 10/13/20 History auto-injector lamotrigine 25 mg tablet 25 mg PO .COMPLEX #60 tab 10/10/20 10/13/20 Rx rizatriptan 10 mg disintegrating 10 mg PO Q2H PRN #12 tab 10/10/20 10/13/20 Rx tablet cyanocobalamin (vitamin B-12) 1,000 mcg SUBCUT .COMPLEX #4 ml 10/12/20 10/13/20 Rx 1,000 mcg/mL injection solution syringe with needle 1 mL 27 x 1/2" #4 ea 10/12/20 10/12/20 Rx sumatriptan succinate 100 mg PO UD PRN 10/13/20 10/13/20 History Patient History Medical History Anxiety Asthma LAST USED RESCUE INHALER 1 WEEK AGO Closed right ankle fracture Fibromyalgia GERD (gastroesophageal reflux disease) History of kidney stones Low back pain Peripheral neuropathy Restless leg syndrome SLE (systemic lupus erythematosus related syndrome) Surgical History H/O laparoscopy H/O total hysterectomy History of anesthesia reaction HAS WOKEN UP IN MIDDLE OF SURGERY (GALL BLADDER/HYSTERECTOMY), WAKE UP VIOLENT/SCREAMING History of section X 1 History of cholecystectomy History of colonoscopy History of esophagogastroduodenoscopy (EGD) History of tooth extraction Family History Other No significant family history Social History Smoking Status: Current every day smoker Tobacco Type: Cigarettes Age Started Using Tobacco: 15; Years Smoked: 21; Cigarettes Per Day: 20 CIG DAILY; Second Hand Exposure: No; Hx Alcohol Use: No Hx Substance Use: No Preferred Language: Macedonian Communication Ability: Effective Tobacco Weigher Required: No Beliefs That Will Affect Care: None marital status: Current Living Situation: Spouse Feels Safe at Home: Yes Assistive Devices: Denture - Upper, Denture - Lower and Glasses Review of Systems Review of Systems: 14 point review of systems completed and negative except as in HPI. Exam (Neuro) Physical Exam: General Exam: GEN: NAD, sitting in bed. HEENT: No conjunctival injection, no rhinorrhea. CV: RRR, no peripheral edema PULM: Nonlabored respirations on room air. Neuro Exam: MS: Awake and Alert. Oriented to person, place, and date. Speech fluent and appropriate without dysarthria or paraphasic errors. Language intact including naming, comprehension, repetition. Cognition and memory grossly intact. Attention intact. No neglect. CN: Visual de la torre full. No extinction to double simultaneous stimuli. Unable to visualize on fundoscopic exam. PERRLA OU. EOMI without nystagmus. Facial sensation intact to LT. Facial muscles full and symmetric. Hearing intact to conversation. Shoulder shrug normal. MOTOR: Normal bulk and tone. No pronator drift. BUE strength 5/5 at deltoids, biceps, triceps, wrist flexors and extensors, and hand grasp bilaterally. BLE strength 5/5 at iliopsoas, hamstrings, quadriceps, tibialis anterior, and gastrocnemius bilaterally. REFLEXES: 2+ at biceps, triceps, brachioradialis, 2+ patella and Achilles bilaterally. Flexor plantar responses bilaterally. SENSORY: Intact to LT without extinction to double simultaneous stimuli. Vibration intact throughout. COORDINATION: No dysmetria or ataxia on ocldis-kt-emuy and lesb-fh-puro bilaterally. Normal Gerald bilaterally. GAIT: deferred given physical status Results & Data ([facility]) Vital Signs (Past 12 Hours) Vital Signs Temp Pulse Pulse Resp BP BP Pulse Ox 10/13/20 11:05 36.7 C 80 20 120/70 96 10/13/20 09:27 36.8 C 72 18 95/60 L 98 10/13/20 07:46 36.7 C 70 20 92/51 L 97 10/13/20 06:37 84 16 112/66 96 10/13/20 04:41 84 16 119/75 100 10/13/20 00:35 93 H 16 134/99 99 10/13/20 00:04 36.8 C 97 H 16 138/99 100 PG Care Time/CCT Total # of Minutes Spent Total Time Spent with Patient: Total time spent is greater than 50% in coordination of care (as documented) at patient's floor/unit and/or counseling patient: Coding Level of Care Code 42808 Office/Outpt Visit, Est Diagnoses Drug rash L27.0 Migraine G43.909
--- NOTE | 2020-10-13 18:41 | Electrocardiogram Report ---
Test Reason : Blood Pressure : / mmHG Vent. Rate : 078 BPM Atrial Rate : 078 BPM P-R Int : 150 ms QRS Dur : 078 ms QT Int : 380 ms P-R-T Axes : -08 016 015 degrees QTc Int : 433 ms Normal sinus rhythm Normal ECG When compared with ECG of 20-NOV-2019 00:14, Nonspecific T wave abnormality no longer evident in Anterior leads Confirmed by Mariusz Parekh ([id number]) on 10/13/2020 6:41:34 PM Referred By: REFERRED SELF Confirmed By:West Parekh
--- NOTE | 2020-10-13 19:11 | Discharge Summary ---
Date of Service October 13, 2020 Admission HPI Per Admitting Provider The patient is a 35-year-old female with a past medical history including migraine, vitamin B12 deficiency, seizure-like activity, memory impairment, COVID-19 virus infection October 2019, SLE, asthma, fibromyalgia and tobacco abuse. She was started on a early dose of Lamictal 25 mg daily, 4 days ago, by Dr. Hirsch with plans to gradually increase upwards. She reports that over the past few days she had worsening rash that is painful, burning and feels like a sunburn. She has no recent travels or sick exposures. Admission Exam Per Admitting Provider The patient is awake, alert and oriented 3, well developed and well nourished, normocephalic and atraumatic, lying in bed and in no acute distress. HEENT--PERRL, EOMI, mucous membranes and oropharynx dry. Neck--supple. No JVD. No bruits. Thyroid normal, trachea midline, no adenopathy. Heart--normal S1 and S2. No murmurs, rubs or gallops. Lungs--clear bilaterally, no respiratory distress, no accessory muscle use. Abdomen--normal bowel sounds and soft. Nontender. Nondistended, no hernias or masses, no organomegaly. Extremities--no cyanosis or clubbing. No edema. There are good distal pulses b/l. Dermatologic--sunburn type rash over back and shoulders, and extending over to chest and somewhat of her abdomen. Neurologic--cranial nerves II through XII grossly intact. Rheumatologic--normal range of motion. Psychiatric--normal affect. Principal Diagnosis Drug rash Discharge Exam GENERAL: A&Ox3. NAD. HEENT: PERRL, EOMI. Moist mucous membranes. NECK: No JVD. No lymphadenopathy. CHEST/LUNGS: CTAB A/P. No crackles, wheezes, rales, ronchi. HEART: RRR. No m/g/r. No carotid bruits. ABDOMEN: NT/ND, soft. BS+ x4 EXTREMITIES: No cyanosis, no clubbing, no edema SKIN: Warm and dry. Mild red rash diffusely on face and back. PSYCHIATRIC: Euthymic affect, no SI, no pressured speech, no hallucinations NEUROLOGIC: The patient has 5/5 strength x4 extremities. Sensation intact. DTR 2+ in all four extremities. CN II-XII grossly intact. Discharge Data Allergies Allergy/AdvReac Type Severity Reaction Status Date / Time bee venom protein (honey bee) Allergy Severe Anaphylaxis Verified 10/13/20 02:10 prednisone Allergy Severe MAKES MY Verified 10/13/20 02:10 HEART STOP Consultations 10/13/20 05:11 ED Decision to Admit Stat 10/13/20 06:28 Consult Neurology Routine Hospital Course (1) Drug rash: Josi Hernandez is a 35-year-old female with past medical history of lupus, migraines who was admitted due to drug rash 2 days after she had started Lamictal. She was treated in the ED with IV famotidine and Benadryl with minimal resolution and so was eventually given a single dose of 10 mg IV Solu- Medrol. She responded well to this and her rash was improving significantly. She was thus discharged with a Medrol Dosepak and instructions to take the medic ation only if needed. While here neurology evaluated her and suggested that she use Depakote ER 500 mg nightly to substitute the Lamictal, as well as magnesium and riboflavin for her migraines. She will follow up with neurology within 4 to 8 weeks. (2) Migraine: (3) SLE (systemic lupus erythematosus related syndrome): Total Time Total Time Spent Total Time Spent (In Minutes): <30 Discharge Plan Discharge Items Patient Disposition: Home - Self-Care Reason For Visit: DRUG RASH Discharge Diagnosis: Drug rash Activity: Per Instructions section Non-emergency contact: Primary Care Provider Call non-emergency contact if: your symptoms worsen Follow-up/Referrals: Elli Mittal C.R.N.P. [Primary Care Provider] - Diet: Regular Addtl Attending Provider Instructions: You were admitted for an allergic reaction to Lamictal causing a rash. He received IV Benadryl and famotidine with minimal improvement, and so were given a small dose of IV steroids. This helped control your rash and as such, you were considered stable for discharge. As discussed, we will discharge you with short course of oral steroids. We will send this to your pharmacy. You can take this medication if tomorrow you still feel like you have some itchiness remaining. As soon as the itchiness and rash subside you may stop taking the medication, you do not need to finish out the whole course if it is not necessary. To substitute the Lamictal, you will be prescribed Depakote which you will take once daily as recommended by the neurologist on-call. Additionally, it is recommended that you take magnesium 400 mg daily and riboflavin 400 mg daily along with your Depakote. It is recommended that you follow-up with neurology within 4 to 6 weeks, please call the office to get this scheduled. Pending Studies at Discharge: No Stand-Alone Forms: My [facility], Smoking Cessation Medications and DC Order Prescriptions: New divalproex [Depakote ER] 500 mg tablet extended release 24 hr 500 mg PO HS 30 Days Qty: 30 RF: 0 methylprednisolone [Medrol (Pelon)] 4 mg tablets,dose pack 1 mg PO UD Qty: 21 RF: 0 Continued Benlysta 200 mg/mL auto-injector 200 mg subcut Q7D RF: 0 rizatriptan 10 mg tablet,disintegrating 10 mg PO Q2H PRN (Reason: migraine headache) Qty: 12 RF: 2 (DME) syringe with needle 1 mL 27 x 1/2" syringe See Rx Instructions .ROUTE .MEDSUPPLY Qty: 4 RF: 0 cyanocobalamin (vitamin B-12) 1,000 mcg/mL solution 1,000 mcg subcut .COMPLEX Qty: 4 RF: 0 Trelegy Ellipta 100-62.5-25 mcg blister with device 1 puffs INH DAILY 90 Days Qty: 60 RF: 3 hydroxychloroquine [Plaquenil] 200 mg Tablet 200 mg PO BID RF: 0 gabapentin 300 mg capsule 600 mg PO HS RF: 0 naproxen sodium [Aleve] 220 mg Tablet 220 mg PO Q6H PRN (Reason: Pain) RF: 0 acetaminophen [Tylenol Extra Strength] 500 mg Tablet 1,500 mg PO Q6H PRN (Reason: Pain) RF: 0 gabapentin 300 mg capsule 300 mg PO .AM & AFTERNOON RF: 0 albuterol sulfate 90 mcg/actuation Hfa Aerosol Inhaler 2 puff INHALATION QID PRN (Reason: Shortness Of Breath Or Wheezing) RF: 0 nifedipine 30 mg tablet extended release 24hr 30 mg PO HS RF: 0 duloxetine 30 mg capsule,delayed release(DR/EC) 30 mg PO HS RF: 0 duloxetine 60 mg capsule,delayed release(DR/EC) 60 mg PO HS RF: 0 sumatriptan succinate 100 mg tablet 100 mg PO UD PRN (Reason: Migraine Headache) RF: 0 Discontinued lamotrigine 25 mg tablet 25 mg PO .COMPLEX Qty: 60 RF: 3 Discharge Orders: Discharge Order (Routine); Ordered 10/13/20 Ordered By: Max Bello Admission Data Admit Date/Time: 10/13/20 05:48 Attending Provider: Jermaine Ochoa Admit Provider: Jermaine Ochoa Primary Care Provider: Elli Mittal Other Providers: Jermaine Ochoa ; Vincenzo Hirsch Other Interventions: Discharge Summary Assessment (RN) Last Done: 10/13/20 19:10 Supervising Physician Co-Signing Physician Notes I personally examined the patient and verified all seo points of history and exam, discussed case, and agree with decision making with Dr Ruiz. Feeling better. Skin is still a little bit reddened still feels a little bit "prickly" but overall much improved. Feels up to going home. Vitals noted, in general she is awake and alert pleasant no distress. HEENT normocephalic atraumatic mucous membranes moist. Breathing unlabored no accessory muscle use good effort. Skin mildly red, no wheals no palpable rashes, red mostly on her face and her back. No focal neuro deficits. Drug rashimproving. Stable for home. Discussed ongoing treatmentgiven that it is improving, we discussed that she could "actively do nothing" and monitor, this would have the least risk of other med side effects, but also make the resolution of the rash the slowest. We discussed Noa recommended taking tonight at bedtime, as this will hopefully help hasten the resolution (discussed sedation). And then we discussed steroids, which would likely hasten resolution the fastest, and discussed obviously in the light of her previous reaction. Discussed that reactions like she had are more often a full set of circumstances, rather than simply a set response to the medication that will always occur, and discussed that she did well on the dosing of steroids she was given this morning. With this in mind, she thought she might want a course of steroids to make the rash go away faster. Given that she already had a dose today, and given time of day that we were having this discussion, I did not feel it appropriate to give her another dose of steroids this eveningrisking keeping her awake all night with steroid related stimulationbut we discussed having her go home, use Benadryl tonight, and then assess the status of her rash in the morning. We have called in a Medrol Dosepak, and if the rash has not improved to her liking, she could easily then start that in the morning. At the same time if her rash is improved, we discussed that she need not even spanish moss picker the prescription. Further given the improvement in the rash, even if she were to start the steroids, she really could safely stop some once the rash is improved enough that it is not bothering her. HeadachesPer neuro. Patient and I discussed waiting until her rash is totally resolved to start the Depakote, so that she has a clear idea of whether or not she ends up with any reaction to it. We discussed this is not very likely, and also discussed that often allergy responses take until at least 2 doses to manifest. Stable for home, otherwise as above. Resident Activity Tracking Resident Involvement: Resident Care Provided Care Provided: Adult Hospital Medicine
--- NOTE | 2020-10-13 20:30 | Billing Data ---
Date of Service October 13, 2020 Coding Level of Care Code 26098 OBS Care - Discharge
[2020-10-13] MEDS ORDERED: DULoxetine HCL 30 MG CAP PO SCH (21:00)
[2020-10-13] MEDS ORDERED: DULoxetine HCL 60 MG CAP PO SCH (21:00)
[2020-10-13] MEDS ORDERED: NIFEdipine EXTENDED REL 30 MG TABCR PO SCH (21:00)
[2020-10-13] MEDS ORDERED: GABAPENTIN 300 MG CAP PO SCH (21:00)
--- NOTE | 2020-10-14 02:49 | Emergency Department Note ---
History of Present Illness General Chief complaint: Rash Stated complaint: PAINFUL SKIN RASH BLISTERS,REF BY DR HIRSCH Time Seen by Provider: 10/13/20 00:12 History of Present Illness Maximum Pain Intensity: 0 This is a 35-year-old female presenting to the emergency department for evaluati on of painful rash on her back, chest, arms, and legs. The patient has a history of lupus and was started on Lamictal earlier this week. She seems to have started with a rash almost immediately after beginning the Lamictal. She is not having distinct chest pain or shortness of breath. She does not have significant throat or vaginal discomfort. The rash feels like a very bad sunburn for her and makes it difficult for her to wear clothing. She rates her overall discomfort a 9/10. She did contact her neurologist, Dr. Hirsch, who started the medication and she was referred to the ER from there. Home Medications Medication Instructions Recorded Confirmed Type duloxetine 30 mg PO HS 07/19/19 10/13/20 History duloxetine 60 mg PO HS 07/19/19 10/13/20 History nifedipine 30 mg PO HS 07/19/19 10/13/20 History hydroxychloroquine [Plaquenil] 200 mg PO BID 11/19/19 10/13/20 History fluticasone fur. 100 mcg-umeclid 1 puffs INH DAILY 90 Days #60 ea 11/25/19 10/13/20 Rx 62.5 mcg-vilant 25 mcg inhalat.powder acetaminophen [Tylenol Extra 1,500 mg PO Q6H PRN 12/21/19 10/13/20 History Strength] gabapentin 600 mg PO HS 12/21/19 10/13/20 History naproxen sodium [Aleve] 220 mg PO Q6H PRN 12/21/19 10/13/20 History albuterol sulfate 2 puff INHALATION QID PRN 01/09/20 10/13/20 History gabapentin 300 mg PO .AM & AFTERNOON 01/09/20 10/13/20 History belimumab 200 mg/mL subcutaneous 200 mg SUBCUT Q7D ml 08/07/20 10/13/20 History auto-injector rizatriptan 10 mg disintegrating 10 mg PO Q2H PRN #12 tab 10/10/20 10/13/20 Rx tablet cyanocobalamin (vitamin B-12) 1,000 mcg SUBCUT .COMPLEX #4 ml 10/12/20 10/13/20 Rx 1,000 mcg/mL injection solution syringe with needle 1 mL 27 x 1/2" #4 ea 10/12/20 10/12/20 Rx divalproex [Depakote ER] 500 mg PO HS 30 Days #30 tab 10/13/20 Rx methylprednisolone [Medrol (Pelon)] 1 mg PO UD #21 ea 10/13/20 Rx sumatriptan succinate 100 mg PO UD PRN 10/13/20 10/13/20 History Allergies Allergy/AdvReac Type Severity Reaction Status Date / Time bee venom protein (honey bee) Allergy Severe Anaphylaxis Verified 10/13/20 02:10 prednisone Allergy Severe MAKES MY Verified 10/13/20 02:10 HEART STOP Past Med/Surg History Medical History Anxiety Asthma LAST USED RESCUE INHALER 1 WEEK AGO Closed right ankle fracture Fibromyalgia GERD (gastroesophageal reflux disease) History of kidney stones Low back pain Peripheral neuropathy Restless leg syndrome SLE (systemic lupus erythematosus related syndrome) Surgical History H/O laparoscopy H/O total hysterectomy History of anesthesia reaction HAS WOKEN UP IN MIDDLE OF SURGERY (GALL BLADDER/HYSTERECTOMY), WAKE UP VIOL ENT/SCREAMING History of section X 1 History of cholecystectomy History of colonoscopy History of esophagogastroduodenoscopy (EGD) History of tooth extraction Family History Other No significant family history Social History Smoking Status: Current every day smoker Tobacco Type: Cigarettes Age Started Using Tobacco: 15; Years Smoked: 21; Cigarettes Per Day: 20 CIG DAILY; Second Hand Exposure: No; Hx Alcohol Use: No Hx Substance Use: No Preferred Language: Estonian Communication Ability: Effective Skip Pitman Required: No Beliefs That Will Affect Care: None marital status: Current Living Situation: Spouse Feels Safe at Home: Yes Assistive Devices: Denture - Upper, Denture - Lower and Glasses Review of Systems A total of 10 systems reviewed and were otherwise negative Physical Exam Vital Signs Vital Signs - 24 hr 10/13/20 04:41 Pulse Rate [Bilateral Radial] 84 Respiratory Rate 16 Respiratory Effort / Characteristics Non-Labored Spontaneous Respiratory Depth Normal Blood Pressure [Right Arm] 119/75 Blood Pressure Mean [Right Arm] 89 Pulse Oximetry 100 Oxygen Delivery Method Room Air VITALS: Vitals are noted on the nurse's note and reviewed by myself. Vital signs stable. GENERAL: Well-developed, well-nourished, white female, who is in no acute distress and resting comfortably. Patient is cooperative with the examination. HEAD: Normocephalic atraumatic. MOUTH: Mucous membranes moist. Tonsils are not enlarged. Pharynx without erythema, blood, or exudate. Uvula midline. Airway patent. NECK: Supple without nuchal rigidity. No lymphadenopathy. No thyromegaly. Cervical spine is nontender. HEART: Regular rate and rhythm without murmurs gallops or rubs. LUNGS: Clear to auscultation bilaterally without wheezes, rales or rhonchi. No retractions or accessory muscle use. ABDOMEN: Positive normal bowel sounds x 4. Soft, nontender, without masses or organomegaly. No guarding or rebound tenderness. MUSCULOSKELETAL: No muscle atrophy, erythema, or edema noted. Full range of motion in all extremities. NEURO: Patient was alert and oriented to person place and time. CN II through XII grossly intact SKIN: The skin was with diffuse tender erythematous rash throughout the back, chest, arms, and legs. These are large patches that are quite tender on palpation. No distinct bulla or vesicles noted. No sloughing of skin. Course Administered Medications Discontinued Medications Al Hydrox/Mg Hydrox/Simethicone (Gi Cocktail Ed Use) 1 dose PO ONE ONE Stop: 10/13/20 02:01 Last Admin: 10/13/20 02:20 Dose: 1 dose Documented by: [id number] Al Hydrox/Mg Hydrox/Simethicone (Gi Cocktail Ed Use) Confirm Administered Dose 1 dose PO .STK-MED ONE Stop: 10/13/20 02:03 Last Admin: 10/13/20 02:22 Dose: Not Given Documented by: [id number] Diphenhydramine HCl (Diphenhydramine 50 Mg/Ml Vial) 50 mg IV NOW STA Stop: 10/13/20 00:22 Last Admin: 10/13/20 01:11 Dose: 50 mg Documented by: [id number] Fluticasone Furoate (Fluticasone Furoate 100mcg 14 Puffs/Inhaler) 1 puffs INH DAILY ROBERT Stop: 11/12/20 08:59 Last Admin: 10/13/20 08:21 Dose: 1 puffs Documented by: [id number] Gabapentin (Gabapentin 300 Mg Cap) 300 mg PO 0900,1400 ROBERT Stop: 11/12/20 08:59 Last Admin: 10/13/20 14:20 Dose: 300 mg Documented by: [id number] Admin: 10/13/20 08:20 Dose: 300 mg Documented by: [id number] Hydroxychloroquine Sulfate (Hydroxychloroquine Sulfate 200 Mg Tab) 200 mg PO BID ROBERT Stop: 11/12/20 08:59 Last Admin: 10/13/20 08:20 Dose: 200 mg Documented by: [id number] Sodium Chloride (Nss 1000ml) 1,000 mls @ 999 mls/hr IV .Q1H1M ROBERT Stop: 10/13/20 01:30 Last Infusion: 10/13/20 02:20 Dose: 0 mls/hr Documented by: [id number] Admin: 10/13/20 00:55 Dose: 999 mls/hr Documented by: [id number] Famotidine (Pepcid 20mg Iv Push) 20 mg in 5 mls @ 2.5 mls/min IV NOW STA Stop: 10/13/20 00:22 Last Admin: 10/13/20 01:10 Dose: 2.5 mls/min Documented by: [id number] Sodium Chloride (Nss 1000ml) 1,000 mls @ 999 mls/hr IV .Q1H1M ROBERT Stop: 10/13/20 02:45 Last Admin: 10/13/20 07:01 Dose: Not Given Documented by: [id number] Potassium Chloride/Sodium Chloride (Normal Saline W/20 Meq Kcl) 20 meq in 1,000 mls @ 150 mls/hr IV .Q6H40M ROBERT Stop: 11/12/20 08:14 Last Admin: 10/13/20 15:10 Dose: 150 mls/hr Documented by: [id number] Infusion: 10/13/20 15:10 Dose: 0 mls/hr Documented by: [id number] Admin: 10/13/20 08:22 Dose: 150 mls/hr Documented by: [id number] Famotidine 20 mg/ Syringe 5 mls @ 2.5 mls/min IV Q12H ROBERT Stop: 11/12/20 08:59 Last Admin: 10/13/20 08:21 Dose: 2.5 mls/min Documented by: [id number] Methylprednisolone 10 mg/ (Syringe) 0.25 mls @ 1.5 mls/min IV ONE ONE Stop: 10/13/20 08:16 Last Admin: 10/13/20 08:21 Dose: 1.5 mls/min Documented by: [id number] Ketorolac Tromethamine (Ketorolac 30 Mg/Ml Vial) 30 mg IV NOW STA Stop: 10/13/20 00:33 Last Admin: 10/13/20 01:11 Dose: 30 mg Documented by: [id number] Morphine Sulfate (Morphine Sulfate 4 Mg/Ml 1 Ml Carp\\Vial) 4 mg IV NOW STA Stop: 10/13/20 00:22 Last Admin: 10/13/20 01:10 Dose: 4 mg Documented by: [id number] Ondansetron HCl (Ondansetron Inj 2 Mg/Ml 2 Ml Vial) 4 mg IV NOW STA Stop: 10/13/20 00:22 Last Admin: 10/13/20 01:11 Dose: 4 mg Documented by: [id number] Umeclidinium/Vilanterol (Umeclidinium/Vilanterol 62.5/25mcg 7 Puffs/Inhaler) 1 puffs INH DAILY ROBERT Stop: 11/12/20 08:59 Last Admin: 10/13/20 08:22 Dose: 1 puffs Documented by: [id number] Medical Decision Making Differential Diagnosis Differential diagnosis: Etiologies such as allergic reaction, anaphylaxis, urticaria, angioedema, Griffin-Cesar syndrome, toxic epidermal necrolysis, erythema multiforme, cellulitis, as well as others were entertained. Laboratory Data Result diagrams: 10/13/20 00:52 10/13/20 00:52 Lab Results 10/13/20 10/13/20 10/13/20 Range/Units 00:03 00:52 00:52 WBC 14.51 H (4.8-10.8) K/uL RBC 5.55 H (4.2-5.4) M/uL Hgb 17.0 H (12.0-16.0) g/dL Hct 48.2 H (37-47) % MCV 86.8 (80-100) fL MCH 30.6 (25-34) pg MCHC 35.3 (32-36) g/dL Plt Count 437 H (130-400) K/uL Immature Gran % (Auto) 0.1 % Neut % (Auto) 61.5 % Lymph % (Auto) 25.2 % Troup % (Auto) 11.2 % Eos % (Auto) 1.6 % Baso % (Auto) 0.4 % Neut # (Auto) 8.93 H (1.4-6.5) K/uL Lymph # (Auto) 3.65 H (1.2-3.4) K/uL Troup # (Auto) 1.62 H (0.11-0.59) K/uL Eos # (Auto) 0.23 (0-0.5) K/uL Baso # (Auto) 0.06 (0-0.2) K/uL Immature Gran # (Auto) 0.02 (0.00-0.02) K/uL ESR 17 (0-21) mm/hr Sodium (136-145) mmol/L Potassium (3.5-5.1) mmol/L Chloride (98-107) mmol/L Carbon Dioxide (21-32) mmol/L Anion Gap (3-11) BUN (7-18) mg/dl Creatinine (0.6-1.2) mg/dl Est Cr Clr Drug Dosing ml/min Est GFR ( Amer) Est GFR (Non-Af Amer) BUN/Creatinine Ratio (10-20) Glucose (70-99) mg/dl Lactate 0.9 (0.4-2.0) mmol/L Calcium (8.5-10.1) mg/dl Total Bilirubin (0.2-1) mg/dl AST (15-37) U/L ALT (12-78) U/L Alkaline Phosphatase (45-117) U/L C-Reactive Protein (0-0.29) mg/dl Total Protein (6.4-8.2) gm/dl Albumin (3.4-5.0) gm/dl Globulin (2.5-4.0) gm/dl Albumin/Globulin Ratio (0.9-2) COVID-19 Eval Order SARS-CoV-2 (PCR) (Negative) Influenza Type A (PCR) (Neg) Influenza Type B (PCR) (Neg) RSV (RT-PCR) (Neg) 10/13/20 10/13/20 10/13/20 Range/Units 00:52 05:08 05:08 WBC (4.8-10.8) K/uL RBC (4.2-5.4) M/uL Hgb (12.0-16.0) g/dL Hct (37-47) % MCV (80-100) fL MCH (25-34) pg MCHC (32-36) g/dL Plt Count (130-400) K/uL Immature Gran % (Auto) % Neut % (Auto) % Lymph % (Auto) % Troup % (Auto) % Eos % (Auto) % Baso % (Auto) % Neut # (Auto) (1.4-6.5) K/uL Lymph # (Auto) (1.2-3.4) K/uL Troup # (Auto) (0.11-0.59) K/uL Eos # (Auto) (0-0.5) K/uL Baso # (Auto) (0-0.2) K/uL Immature Gran # (Auto) (0.00-0.02) K/uL ESR (0-21) mm/hr Sodium 139 (136-145) mmol/L Potassium 3.8 (3.5-5.1) mmol/L Chloride 107 (98-107) mmol/L Carbon Dioxide 29 (21-32) mmol/L Anion Gap 3.0 (3-11) BUN 13 (7-18) mg/dl Creatinine 0.79 (0.6-1.2) mg/dl Est Cr Clr Drug Dosing 128.2 ml/min Est GFR ( Amer) 114.0 Est GFR (Non-Af Amer) 98.4 BUN/Creatinine Ratio 15.8 (10-20) Glucose 85 (70-99) mg/dl Lactate (0.4-2.0) mmol/L Calcium 10.5 H (8.5-10.1) mg/dl Total Bilirubin 0.4 (0.2-1) mg/dl AST 9 L (15-37) U/L ALT 20 (12-78) U/L Alkaline Phosphatase 106 (45-117) U/L C-Reactive Protein 0.58 H (0-0.29) mg/dl Total Protein 8.3 H (6.4-8.2) gm/dl Albumin 4.2 (3.4-5.0) gm/dl Globulin 4.1 H (2.5-4.0) gm/dl Albumin/Globulin Ratio 1.0 (0.9-2) COVID-19 Eval Order [facility]FluRsv at [facility] SARS-CoV-2 (PCR) NEGATIVE (Negative) Influenza Type A (PCR) Negative (Neg) Influenza Type B (PCR) Negative (Neg) RSV (RT-PCR) Negative (Neg) MDM Narrative Physical exam and history were performed. Nursing notes, EMR, and Medication List were personally reviewed. Patient appears to have diffusely tender rash after starting Lamictal this week. I discussed options of care with the patient and she does not wish for steroids as she has had significant allergic reaction to these in the past. She does not appear to be in anaphylaxis, however I have considerable concern that her rash may be early TEN or SJS. IV access was established and labs were obtained. The patient was aggressively hydrated with saline and given IV morphine, IV Pepcid, IV Benadryl, and IV Zofran. An order was placed for continuous cardiac monitoring. The monitor shows a rate of 78 with normal sinus rhythm. The patient's blood work is as above and was reviewed. She does have an elevate d white blood cell count of 14. She is with a hemoglobin of 17. Transaminases are not diagnostic. CRP is slightly elevated at 0.58 with a normal sed rate. Lactic is negative with cultures pending. Covid was performed and also negative. The patient was reevaluated multiple times throughout the course of her stay. She did have some relief of the pain with pain medication, however the Benadryl and Pepcid did not seem to improve her rash. The case was discussed with my attending, and at this time she is felt to be at risk for worsening rash. She may need alternative steroid treatment which will be best facilitated through the hospital. The case was discussed with the hospitalist service who agreed to evaluate the patient here in the department. Please see their dictation for further patient course, plan, and disposition. The chart was completed utilizing [employer] Voice Recognition Software. Grammatical errors, random word insertions, pronoun errors, and incomplete sentences are an occasional consequence of this system due to software limitations, ambient noise, and hardware issues. Any formal questions or concerns about the content, text, or information contained within the body of this dictation should be directly addressed to the provider for clarification. . Impression & Plan Allergic reaction to drug, Rash and nonspecific skin eruption Discharge Plan Visit Data Chief Complaint: Rash Stated Complaint: PAINFUL SKIN RASH BLISTERS,REF BY DR HIRSCH ED Provider: Valentina Steward ED Midlevel Provider: Toni Red Discharge Problem: Allergic reaction to drug, Rash and nonspecific skin eruption Patient Disposition: Admitted As Inpatient Discharge Instructions Interventions: ED Discharge Assessment Last Done: 10/13/20 07:18
== END 2020-10-13 19:18 | disposition home or self-care (01) ==
LOC: SUATTDRO → 2S → ED → 2S 07:18